=== PATIENT | female | born 1990 | race Two or more races ===

== ENCOUNTER 2020-02-07 21:20 | Emergency (ER) | payer BC, MEDICAID ==
[~2020-02-07] VITALS: Ht 149.9 cm; Wt 63.0 kg
[2020-02-07 22:15] VITALS: BP 106/80
[2020-02-07 22:42] LABS: CLARITY,URINE CLEAR (Clear); COLOR,URINE YELLOW (Yellow); GLUCOSE, URINE NEGATIVE (Neg); KETONES,URINE NEGATIVE (Neg); LEUKOCYTE ESTERASE ,URINE NEGATIVE (Neg); NITRITES, URINE NEGATIVE (Neg); OCCULT BLOOD,URINE NEGATIVE (Neg); PROTEIN,URINE NEGATIVE (Neg); UROBILINOGEN,URINE 0.2 E.U/dL (0.2-1.0)
[2020-02-07 22:46] LABS: UA COLLECTION TYPE NON-SPECIFIED
== END 2020-02-07 22:43 | disposition home or self-care (01) ==
LOC: ER 21:20
DX: K42.9 Umbilical hernia without obstruction or gangrene (principal); Z34.90 Encounter for supervision of normal pregnancy, unspecified, unspecified trimester
CPT/HCPCS: 76857; 81003; 99284

== ENCOUNTER 2020-02-18 10:48 | Outpatient (CLI) | payer BC ==
[2020-02-18 11:21] LABS: BASOPHILS # (AUTO) 0.1 X10'3 (0-0.2); BASOPHILS % (AUTO) 0.5 % (0-1); EOSINOPHILS # (AUTO) 0.1 X10'3 (0-0.9); EOSINOPHILS % (AUTO) 0.7 % (0-6); HEMATOCRIT 38.4 % (35.0-45.0); HEMOGLOBIN 13.1 g/dl (12.0-16.0); LYMPHOCYTES # (AUTO) 3.4 X10'3 (1.1-4.8); LYMPHOCYTES % (AUTO) 23.5 % (21-51); MEAN CORPUSCULAR HEMOGLOBIN 29.3 PG (27.0-31.0); MEAN CORPUSCULAR HGB CONC 34.1 g/dL (33.0-36.5); MEAN CORPUSCULAR VOLUME 85.9 FL (78-98); MEAN PLATELET VOLUME 8.3 FL (7.4-10.4); MONOCYTES # (AUTO) 0.9 X10'3 (0-0.9); MONOCYTES % (AUTO) 5.9 % (2-12); NEUTROPHILS % (AUTO) 69.4 % (42-75); PLATELET COUNT 325 X10'3 (140-440); RED BLOOD COUNT 4.47 X10'6 (4.20-5.60); RED CELL DISTRIBUTION WIDTH 13.4 % (11.5-14.5); WHITE BLOOD COUNT 14.4 X10'3 (4.5-11.0)
[2020-02-18 11:43] LABS: ALANINE AMINOTRANSFERASE 18 U/L (12-78); ALBUMIN 3.4 G/DL (3.4-5.0); ALBUMIN/GLOBULIN RATIO 0.9 (1.1-1.5); ALKALINE PHOSPHATASE 75 IU/L (46-116); ANION GAP 8 (8-16); ASPARTATE AMINO TRANSFERASE 18 U/L (10-37); BILIRUBIN,TOTAL 0.3 MG/DL (0.1-1.0); BLOOD UREA NITROGEN 8 MG/DL (7-18); CALCIUM 8.7 MG/DL (8.5-10.1); CHLORIDE 103 MMOL/L (99-107); CHOL/HDL RATIO 3.4 (0.00-4.99); CHOLESTEROL 225 MG/DL (0-200); CREATININE 0.47 MG/DL (0.40-0.90); GLUCOSE 82 MG/DL (70-104); HDL CHOLESTEROL 67 MG/DL (35-60); LDL CHOLESTEROL 130 MG/DL (50-100); POTASSIUM 3.9 MMOL/L (3.5-5.1); SODIUM 137 MMOL/L (135-145); TOTAL CARBON DIOXIDE 25.6 MMOL/L (24-32); TOTAL PROTEIN 7.3 G/DL (6.4-8.2); TRIGLYCERIDES 155 MG/DL (20-135); eGFR > 90 ML/MIN
[2020-02-18 11:57] LABS: HEMOGLOBIN A1C 5.5 % (4.5-6.2)
== END 2020-02-18 23:59 | disposition home or self-care (01) ==
LOC: LAB 10:48
PROVIDERS: ATTEND Physician Assistant
DX: Z00.00 Encounter for general adult medical examination without abnormal findings (principal); R10.9 Unspecified abdominal pain; R63.1 Polydipsia
CPT/HCPCS: 36415; 80053; 80061; 83036; 84439; 84443; 85025

== ENCOUNTER 2020-02-19 07:01 | Outpatient (CLI) | payer BC | END 2020-02-19 23:59 | disposition home or self-care (01) | LOC: RAD 07:01 | PROVIDERS: ATTEND Physician Assistant | DX: R10.9 Unspecified abdominal pain (principal) | CPT/HCPCS: 76700 ==

== ENCOUNTER 2020-02-28 09:21 | Outpatient (CLI) | payer OTHER | END 2020-02-28 23:59 | disposition home or self-care (01) | LOC: LAB 09:21 | PROVIDERS: ATTEND Internal Medicine Infectious Disease | DX: Z53.21 Procedure and treatment not carried out due to patient leaving prior to being seen by health care provider (principal) ==

== ENCOUNTER → 2020-03-02 | Outpatient (CLI) | payer OTHER | END | disposition home or self-care (01) | LOC: LAB 10:21 | PROVIDERS: ATTEND Internal Medicine Infectious Disease | DX: Z53.9 Procedure and treatment not carried out, unspecified reason (principal) ==

== ENCOUNTER 2020-03-05 09:36 | Emergency (ER) | payer BC, OTHER ==
[~2020-03-05] VITALS: Ht 149.9 cm; Wt 63.6 kg
[2020-03-05 09:38] VITALS: BP 122/72
[2020-03-05 10:36] LABS: BASOPHILS % (AUTO) 0.4 % (0-1); EOSINOPHILS # (AUTO) 0.1 X10'3 (0-0.9); EOSINOPHILS % (AUTO) 0.8 % (0-6); HEMATOCRIT 37.5 % (35.0-45.0); HEMOGLOBIN 12.8 g/dl (12.0-16.0); LYMPHOCYTES # (AUTO) 2.8 X10'3 (1.1-4.8); MEAN CORPUSCULAR HEMOGLOBIN 29.5 PG (27.0-31.0); MEAN CORPUSCULAR VOLUME 86.8 FL (78-98); MONOCYTES # (AUTO) 0.6 X10'3 (0-0.9); MONOCYTES % (AUTO) 5.1 % (2-12); NEUTROPHILS # (AUTO) 8.7 X10'3 (1.8-7.7); NEUTROPHILS % (AUTO) 70.7 % (42-75); PLATELET COUNT 314 X10'3 (140-440); RED BLOOD COUNT 4.32 X10'6 (4.20-5.60); RED CELL DISTRIBUTION WIDTH 13.6 % (11.5-14.5); WHITE BLOOD COUNT 12.3 X10'3 (4.5-11.0)
[2020-03-05 10:44] LABS: ALANINE AMINOTRANSFERASE 21 U/L (12-78); ALBUMIN 3.2 G/DL (3.4-5.0); ALBUMIN/GLOBULIN RATIO 0.8 (1.1-1.5); ALKALINE PHOSPHATASE 79 IU/L (46-116); ASPARTATE AMINO TRANSFERASE 10 U/L (10-37); BILIRUBIN,TOTAL 0.1 MG/DL (0.1-1.0); CALCIUM 8.6 MG/DL (8.5-10.1); TOTAL CARBON DIOXIDE 21.7 MMOL/L (24-32); TOTAL PROTEIN 7.2 G/DL (6.4-8.2)
[2020-03-05 10:47] LABS: ANION GAP 12 (8-16); BLOOD UREA NITROGEN 7 MG/DL (7-18); BUN/CREATININE RATIO 12.5 (6.6-38.0); CHLORIDE 103 MMOL/L (99-107); CREATININE 0.56 MG/DL (0.40-0.90); GLUCOSE 116 MG/DL (70-104); POTASSIUM 3.7 MMOL/L (3.5-5.1); SODIUM 137 MMOL/L (135-145); eGFR > 90 ML/MIN
[2020-03-05 11:31] LABS: CLARITY,URINE CLEAR (Clear); COLOR,URINE YELLOW (Yellow); GLUCOSE, URINE NEGATIVE (Neg); KETONES,URINE NEGATIVE (Neg); LEUKOCYTE ESTERASE ,URINE TRACE (Neg); NITRITES, URINE NEGATIVE (Neg); OCCULT BLOOD,URINE NEGATIVE (Neg); PH,URINE 6.5 (4.8-8.0); PROTEIN,URINE NEGATIVE (Neg); UROBILINOGEN,URINE 0.2 E.U/dL (0.2-1.0)
[2020-03-05 11:41] LABS: D-DIMER 0.31 MG/L FEU (0-0.50)
[2020-03-05 11:55] LABS: UA COLLECTION TYPE CLN CATCH MIDSTREAM
[2020-03-05 11:56] LABS: BACTERIA,URINE FEW /HPF (Neg); MUCUS STRANDS FEW /LPF (Neg); RBC,URINE 0-2 /HPF (0-2); SQUAMOUS EPITHELIAL CELL,UR MANY /LPF (FEW); WBC,URINE 0-4 /HPF (0-4)
== END 2020-03-05 12:38 | disposition home or self-care (01) ==
LOC: ER 09:37
DX: O26.811 Pregnancy related exhaustion and fatigue, first trimester (principal); O26.891 Other specified pregnancy related conditions, first trimester; R42 Dizziness and giddiness; Z3A.14 14 weeks gestation of pregnancy
CPT/HCPCS: 36415; 80053; 81001; 84443; 85025; 85379; 93005; 99284

== ENCOUNTER 2020-04-06 06:52 | Outpatient (CLI) | payer BC ==
[2020-04-06 09:46] LABS: BASOPHILS % (AUTO) 0.3 % (0-1); EOSINOPHILS # (AUTO) 0.1 X10'3 (0-0.9); EOSINOPHILS % (AUTO) 0.9 % (0-6); HEMATOCRIT 36.1 % (35.0-45.0); HEMOGLOBIN 12.2 g/dl (12.0-16.0); LYMPHOCYTES # (AUTO) 2.7 X10'3 (1.1-4.8); LYMPHOCYTES % (AUTO) 18.7 % (21-51); MEAN CORPUSCULAR HEMOGLOBIN 29.2 PG (27.0-31.0); MEAN CORPUSCULAR HGB CONC 33.7 g/dL (33.0-36.5); MEAN CORPUSCULAR VOLUME 86.8 FL (78-98); MEAN PLATELET VOLUME 8.9 FL (7.4-10.4); MONOCYTES # (AUTO) 1.2 X10'3 (0-0.9); MONOCYTES % (AUTO) 8.5 % (2-12); NEUTROPHILS # (AUTO) 10.3 X10'3 (1.8-7.7); NEUTROPHILS % (AUTO) 71.6 % (42-75); PLATELET COUNT 313 X10'3 (140-440); RED BLOOD COUNT 4.17 X10'6 (4.20-5.60); RED CELL DISTRIBUTION WIDTH 13.9 % (11.5-14.5); WHITE BLOOD COUNT 14.4 X10'3 (4.5-11.0)
[2020-04-06 13:01] LABS: HIV ANTIBODY 1&2 RAPID NON-REACTIVE (Neg)
[2020-04-07 14:33] LABS: HEPATITIS C ANTIBODY <0.1 s/co ratio (0.0-0.9); RUBELLA ANTIBODIES, IGG 1.58 index (Immune >0.99)
== END 2020-04-06 23:59 | disposition home or self-care (01) ==
LOC: LAB 06:52
PROVIDERS: ATTEND Specialist
DX: Z34.90 Encounter for supervision of normal pregnancy, unspecified, unspecified trimester (principal); R35.0 Frequency of micturition; Z3A.00 Weeks of gestation of pregnancy not specified
CPT/HCPCS: 36415; 85025; 86592; 86703; 86706; 86762; 86803; 86885; 86900; 86901; 87077; 87088; 87186

== ENCOUNTER 2020-04-15 17:51 | Outpatient (CLI) | payer BC | END 2020-04-15 23:59 | disposition home or self-care (01) | LOC: RAD 17:51 | PROVIDERS: ATTEND Physician Assistant | DX: O46.92 Antepartum hemorrhage, unspecified, second trimester (principal); Z3A.19 19 weeks gestation of pregnancy | CPT/HCPCS: 76805 ==

== ENCOUNTER 2020-06-10 09:06 | Outpatient (CLI) | payer BC ==
[2020-06-10 15:27] LABS: BASOPHILS # (AUTO) 0.1 X10'3 (0-0.2); BASOPHILS % (AUTO) 0.4 % (0-1); EOSINOPHILS # (AUTO) 0.2 X10'3 (0-0.9); EOSINOPHILS % (AUTO) 1.1 % (0-6); HEMATOCRIT 35.6 % (35.0-45.0); HEMOGLOBIN 11.7 g/dl (12.0-16.0); LYMPHOCYTES % (AUTO) 20.1 % (21-51); MEAN CORPUSCULAR HEMOGLOBIN 28.4 PG (27.0-31.0); MEAN CORPUSCULAR HGB CONC 32.8 g/dL (33.0-36.5); MEAN CORPUSCULAR VOLUME 86.8 FL (78-98); MEAN PLATELET VOLUME 8.6 FL (7.4-10.4); MONOCYTES % (AUTO) 6.7 % (2-12); NEUTROPHILS # (AUTO) 10.8 X10'3 (1.8-7.7); NEUTROPHILS % (AUTO) 71.7 % (42-75); PLATELET COUNT 323 X10'3 (140-440); RED BLOOD COUNT 4.11 X10'6 (4.20-5.60); RED CELL DISTRIBUTION WIDTH 13.4 % (11.5-14.5); WHITE BLOOD COUNT 15.1 X10'3 (4.5-11.0)
[2020-06-10 15:33] LABS: GLUCOSE PREG 50 GM SCREEN 111 MG/DL (70-140)
[2020-06-10 17:08] LABS: GLUCOSE 1 HOUR 128 MG/DL
== END 2020-06-10 23:59 | disposition home or self-care (01) ==
LOC: LAB 09:06
PROVIDERS: ATTEND Specialist
DX: O24.419 Gestational diabetes mellitus in pregnancy, unspecified control (principal); Z3A.00 Weeks of gestation of pregnancy not specified
CPT/HCPCS: 36415; 82950; 85025; 86592; 86885; 86900; 86901

== ENCOUNTER 2020-09-20 01:51 | Emergency (ER) | payer BC ==
[~2020-09-20] VITALS: Ht 149.9 cm; Wt 70.0 kg
[2020-09-20] MEDS ORDERED: acetaminophen 325mg tablet PO ONE (02:20)
[2020-09-20] MEDS ORDERED: ketorolac tromethamine 15mg/ml inj. IM ONE (02:20)
[2020-09-20] MEDS ORDERED: iohexol 350MG/ML 100ml bottle IV ONE (02:28)
[2020-09-20 02:55] LABS: BASOPHILS # (AUTO) 0.1 X10'3 (0-0.2); BASOPHILS % (AUTO) 0.6 % (0-1); EOSINOPHILS # (AUTO) 0.2 X10'3 (0-0.9); EOSINOPHILS % (AUTO) 1.9 % (0-6); HEMATOCRIT 36.9 % (35.0-45.0); HEMOGLOBIN 11.9 g/dl (12.0-16.0); LYMPHOCYTES % (AUTO) 25.5 % (21-51); MEAN CORPUSCULAR HGB CONC 32.4 g/dL (33.0-36.5); MEAN CORPUSCULAR VOLUME 83.3 FL (78-98); MEAN PLATELET VOLUME 9.2 FL (7.4-10.4); MONOCYTES # (AUTO) 0.9 X10'3 (0-0.9); MONOCYTES % (AUTO) 7.3 % (2-12); NEUTROPHILS # (AUTO) 7.6 X10'3 (1.8-7.7); NEUTROPHILS % (AUTO) 64.7 % (42-75); PLATELET COUNT 336 X10'3 (140-440); RED BLOOD COUNT 4.43 X10'6 (4.20-5.60); RED CELL DISTRIBUTION WIDTH 15.2 % (11.5-14.5); WHITE BLOOD COUNT 11.7 X10'3 (4.5-11.0)
[2020-09-20 02:58] LABS: ALANINE AMINOTRANSFERASE 28 U/L (12-78); ALBUMIN 2.9 G/DL (3.4-5.0); ALBUMIN/GLOBULIN RATIO 0.7 (1.1-1.5); ALKALINE PHOSPHATASE 182 IU/L (46-116); ANION GAP 9 (8-16); ASPARTATE AMINO TRANSFERASE 22 U/L (10-37); BILIRUBIN,TOTAL 0.2 MG/DL (0.1-1.0); BLOOD UREA NITROGEN 10 MG/DL (7-18); BUN/CREATININE RATIO 14.9 (6.6-38.0); CALCIUM 8.8 MG/DL (8.5-10.1); CHLORIDE 107 MMOL/L (99-107); CREATININE 0.67 MG/DL (0.40-0.90); GLUCOSE 93 MG/DL (70-104); SODIUM 141 MMOL/L (135-145); TOTAL CARBON DIOXIDE 25.1 MMOL/L (24-32); eGFR > 90 ML/MIN
[2020-09-20] MEDS ORDERED: LIDOcaine 1% 30ml preserv. free vial IJ STA (03:08)
[2020-09-20 03:55] LABS: CLARITY,URINE CLEAR (Clear); COLOR,URINE YELLOW (Yellow); GLUCOSE, URINE NEGATIVE (Neg); KETONES,URINE NEGATIVE (Neg); LEUKOCYTE ESTERASE ,URINE NEGATIVE (Neg); NITRITES, URINE NEGATIVE (Neg); OCCULT BLOOD,URINE MODERATE (Neg); PH,URINE 7.5 (4.8-8.0); PROTEIN,URINE NEGATIVE (Neg); UROBILINOGEN,URINE 0.2 E.U/dL (0.2-1.0)
[2020-09-20 04:00] LABS: UA COLLECTION TYPE CLN CATCH MIDSTREAM
[2020-09-20] MEDS ORDERED: magnesium 4gm in 100ml NS 100 ML IV ONE (04:00)
[2020-09-20] MEDS ORDERED: labetalol 20mg/4ml (5mg/ml) syringe IV ONE (04:00)
[2020-09-20 04:01] LABS: BACTERIA,URINE NONE SEEN /HPF (Neg); SQUAMOUS EPITHELIAL CELL,UR FEW /LPF (FEW); WBC,URINE NONE SEEN /HPF (0-4)
[2020-09-20 04:58] VITALS: BP 139/97
== END 2020-09-20 05:02 ==
LOC: EEVIPCON 01:51 → ER 01:51
DX: O14.95 Unspecified pre-eclampsia, complicating the puerperium (principal); M25.511 Pain in right shoulder; M54.2 Cervicalgia
CPT/HCPCS: 20552; 36415; 71275; 74174; 80053; 81001; 82570; 84156; 85025; 93005; 96365; 96375; 99285; J2001; J3475; Q9967; J3490

== ENCOUNTER 2021-01-02 08:21 | Outpatient (CLI) | payer BC ==
[2021-01-02 09:11] LABS: BASOPHILS # (AUTO) 0.1 X10'3 (0-0.2); BASOPHILS % (AUTO) 0.6 % (0-1); EOSINOPHILS # (AUTO) 0.2 X10'3 (0-0.9); HEMATOCRIT 38.9 % (35.0-45.0); HEMOGLOBIN 13.1 g/dl (12.0-16.0); LYMPHOCYTES # (AUTO) 3.1 X10'3 (1.1-4.8); MEAN CORPUSCULAR HEMOGLOBIN 27.8 PG (27.0-31.0); MEAN CORPUSCULAR HGB CONC 33.7 g/dL (33.0-36.5); MEAN CORPUSCULAR VOLUME 82.4 FL (78-98); MEAN PLATELET VOLUME 8.1 FL (7.4-10.4); MONOCYTES # (AUTO) 0.7 X10'3 (0-0.9); MONOCYTES % (AUTO) 6.9 % (2-12); NEUTROPHILS # (AUTO) 6.6 X10'3 (1.8-7.7); NEUTROPHILS % (AUTO) 61.5 % (42-75); PLATELET COUNT 340 X10'3 (140-440); RED BLOOD COUNT 4.72 X10'6 (4.20-5.60); RED CELL DISTRIBUTION WIDTH 15.7 % (11.5-14.5); WHITE BLOOD COUNT 10.7 X10'3 (4.5-11.0)
[2021-01-02 09:43] LABS: ALANINE AMINOTRANSFERASE 32 U/L (12-78); ALBUMIN 3.9 G/DL (3.4-5.0); ALKALINE PHOSPHATASE 136 IU/L (46-116); ANION GAP 14 (8-16); ASPARTATE AMINO TRANSFERASE 20 U/L (10-37); BILIRUBIN,TOTAL 0.4 MG/DL (0.1-1.0); BLOOD UREA NITROGEN 19 MG/DL (7-18); CALCIUM 8.5 MG/DL (8.5-10.1); CHLORIDE 108 MMOL/L (99-107); CHOL/HDL RATIO 3.2 (0.00-4.99); CHOLESTEROL 175 MG/DL (0-200); GLUCOSE 67 MG/DL (70-104); HDL CHOLESTEROL 55 MG/DL (35-60); LDL CHOLESTEROL 110 MG/DL (50-100); POTASSIUM 3.7 MMOL/L (3.5-5.1); SODIUM 145 MMOL/L (135-145); TOTAL CARBON DIOXIDE 22.6 MMOL/L (24-32); TOTAL PROTEIN 7.8 G/DL (6.4-8.2); TRIGLYCERIDES 44 MG/DL (20-135)
[2021-01-02 10:40] LABS: BUN/CREATININE RATIO 31.7 (6.6-38.0); eGFR > 90 ML/MIN
[2021-01-03 14:37] LABS: THIIODOTHRONINE, FREE, SERUM 2.6 pg/mL (2.0-4.4)
[2021-01-05 09:52] LABS: MICROALB/CRT, RATIO 12 mg/g creat (0-29)
== END 2021-01-02 23:59 | disposition home or self-care (01) ==
LOC: RAD 08:21
PROVIDERS: ATTEND Physician Assistant
DX: Z00.00 Encounter for general adult medical examination without abnormal findings (principal); K80.20 Calculus of gallbladder without cholecystitis without obstruction; O14.90 Unspecified pre-eclampsia, unspecified trimester; R19.4 Change in bowel habit; Z80.0 Family history of malignant neoplasm of digestive organs; Z83.79 Family history of other diseases of the digestive system
CPT/HCPCS: 36415; 76700; 80053; 80061; 82043; 82306; 82570; 84439; 84443; 84481; 85025

== ENCOUNTER 2021-01-04 00:44 | Emergency (ER) | payer BC ==
[~2021-01-04] VITALS: Ht 149.9 cm; Wt 59.1 kg
[2021-01-04 01:45] LABS: BASOPHILS # (AUTO) 0.1 X10'3 (0-0.2); BASOPHILS % (AUTO) 0.7 % (0-1); EOSINOPHILS # (AUTO) 0.3 X10'3 (0-0.9); EOSINOPHILS % (AUTO) 2.4 % (0-6); HEMATOCRIT 39.8 % (35.0-45.0); HEMOGLOBIN 13.3 g/dl (12.0-16.0); LYMPHOCYTES # (AUTO) 5.4 X10'3 (1.1-4.8); LYMPHOCYTES % (AUTO) 41.4 % (21-51); MEAN CORPUSCULAR HEMOGLOBIN 27.6 PG (27.0-31.0); MEAN CORPUSCULAR HGB CONC 33.4 g/dL (33.0-36.5); MEAN CORPUSCULAR VOLUME 82.5 FL (78-98); MEAN PLATELET VOLUME 8.2 FL (7.4-10.4); MONOCYTES # (AUTO) 1.1 X10'3 (0-0.9); NEUTROPHILS # (AUTO) 6.2 X10'3 (1.8-7.7); NEUTROPHILS % (AUTO) 47.5 % (42-75); PLATELET COUNT 360 X10'3 (140-440); RED BLOOD COUNT 4.82 X10'6 (4.20-5.60); RED CELL DISTRIBUTION WIDTH 15.3 % (11.5-14.5); WHITE BLOOD COUNT 13.1 X10'3 (4.5-11.0)
[2021-01-04] MEDS ORDERED: morphine 4 MG/ML inj SYRINge IV ONE (01:45)
[2021-01-04] MEDS ORDERED: ondansetron/PF 4mg/2ml inj IV ONE (01:45)
[2021-01-04 01:50] LABS: URINE HCG NEGATIVE (NEG)
[2021-01-04 01:54] LABS: COLOR,URINE YELLOW (Yellow); UA COLLECTION TYPE NON-SPECIFIED
[2021-01-04 01:55] LABS: CLARITY,URINE SLIGHTLY CLOUDY (Clear); GLUCOSE, URINE NEGATIVE (Neg); KETONES,URINE NEGATIVE (Neg); LEUKOCYTE ESTERASE ,URINE NEGATIVE (Neg); NITRITES, URINE NEGATIVE (Neg); OCCULT BLOOD,URINE NEGATIVE (Neg); PROTEIN,URINE TRACE mg/dl (Neg); UROBILINOGEN,URINE 0.2 E.U/dL (0.2-1.0)
[2021-01-04 01:57] LABS: BACTERIA,URINE 1+ /HPF (Neg); MUCUS STRANDS MODERATE /LPF (Neg)
[2021-01-04 01:58] LABS: RBC,URINE 0-2 /HPF (0-2); SQUAMOUS EPITHELIAL CELL,UR MODERATE /LPF (FEW)
[2021-01-04 02:02] LABS: ALANINE AMINOTRANSFERASE 32 U/L (12-78); ALBUMIN 3.6 G/DL (3.4-5.0); ALBUMIN/GLOBULIN RATIO 0.9 (1.1-1.5); ALKALINE PHOSPHATASE 152 IU/L (46-116); ANION GAP 9 (8-16); ASPARTATE AMINO TRANSFERASE 19 U/L (10-37); BILIRUBIN,TOTAL 0.2 MG/DL (0.1-1.0); BLOOD UREA NITROGEN 14 MG/DL (7-18); BUN/CREATININE RATIO 19.4 (6.6-38.0); CALCIUM 8.6 MG/DL (8.5-10.1); CHLORIDE 109 MMOL/L (99-107); CREATININE 0.72 MG/DL (0.40-0.90); GLUCOSE 99 MG/DL (70-104); LIPASE 130 U/L (73-393); POTASSIUM 3.7 MMOL/L (3.5-5.1); SODIUM 144 MMOL/L (135-145); TOTAL CARBON DIOXIDE 26.2 MMOL/L (24-32); TOTAL PROTEIN 7.6 G/DL (6.4-8.2); eGFR > 90 ML/MIN
--- NOTE | 2021-01-04 02:04 | NUR ---
Patient with Tech.
[2021-01-04 02:12] LABS: BILIRUBIN,DIRECT 0.1 MG/DL (0-0.3)
[2021-01-04 03:00] VITALS: BP 113/76
[2021-01-04] MEDS ORDERED: IBUP-1984 PO (03:30)
[2021-01-04] MEDS ORDERED: NO HOME MEDS (22:22)
== END 2021-01-04 02:15 | disposition home or self-care (01) ==
LOC: ER 00:44
DX: K80.20 Calculus of gallbladder without cholecystitis without obstruction (principal); R10.11 Right upper quadrant pain; Z79.899 Other long term (current) drug therapy
CPT/HCPCS: 36415; 76700; 80053; 81001; 81025; 82248; 83690; 85025; 87088; 96374; 96375; 99284; J2270; J2405

== ENCOUNTER 2021-01-04 17:57 | Inpatient (IN) | payer BC ==
[~2021-01-04] VITALS: Ht 149.9 cm; Wt 61.0 kg
[~2021-01-04 17:57] MED LIST: IBUP-1984 PO
[2021-01-04] MEDS ORDERED: ketorolac trometh. 30mg/ml inj. IV ONE (18:20)
[2021-01-04] MEDS ORDERED: morphine 4 MG/ML inj SYRINge IV PRN (18:20)
[2021-01-04] MEDS ORDERED: ondansetron/PF 4mg/2ml inj IV ONE (18:20)
[2021-01-04] MEDS ORDERED: normal saline 1000ML IV soln IVB ONE (18:20)
[2021-01-04 18:41] LABS: BASOPHILS % (AUTO) 0.3 % (0-1); EOSINOPHILS # (AUTO) 0.2 X10'3 (0-0.9); EOSINOPHILS % (AUTO) 1.2 % (0-6); HEMATOCRIT 40.6 % (35.0-45.0); HEMOGLOBIN 13.4 g/dl (12.0-16.0); LYMPHOCYTES # (AUTO) 3.9 X10'3 (1.1-4.8); LYMPHOCYTES % (AUTO) 24.7 % (21-51); MEAN CORPUSCULAR HEMOGLOBIN 27.4 PG (27.0-31.0); MEAN CORPUSCULAR HGB CONC 33.1 g/dL (33.0-36.5); MEAN CORPUSCULAR VOLUME 82.8 FL (78-98); MEAN PLATELET VOLUME 8.2 FL (7.4-10.4); MONOCYTES # (AUTO) 1.4 X10'3 (0-0.9); MONOCYTES % (AUTO) 8.9 % (2-12); NEUTROPHILS # (AUTO) 10.2 X10'3 (1.8-7.7); NEUTROPHILS % (AUTO) 64.9 % (42-75); PLATELET COUNT 381 X10'3 (140-440); RED CELL DISTRIBUTION WIDTH 15.9 % (11.5-14.5); WHITE BLOOD COUNT 15.7 X10'3 (4.5-11.0)
[2021-01-04] MEDS ORDERED: CefTRIAXone 2gm/D5W 50ml BAG 50 ML IV ONE (18:55)
[2021-01-04 18:58] LABS: ALANINE AMINOTRANSFERASE 73 U/L (12-78); ALKALINE PHOSPHATASE 195 IU/L (46-116); ANION GAP 10 (8-16); ASPARTATE AMINO TRANSFERASE 90 U/L (10-37); BILIRUBIN,TOTAL 0.7 MG/DL (0.1-1.0); BLOOD UREA NITROGEN 12 MG/DL (7-18); BUN/CREATININE RATIO 16.4 (6.6-38.0); CALCIUM 8.6 MG/DL (8.5-10.1); CHLORIDE 106 MMOL/L (99-107); CREATININE 0.73 MG/DL (0.40-0.90); GLUCOSE 89 MG/DL (70-104); LIPASE 169 U/L (73-393); POTASSIUM 3.8 MMOL/L (3.5-5.1); SODIUM 143 MMOL/L (135-145); TOTAL CARBON DIOXIDE 27.4 MMOL/L (24-32); TOTAL PROTEIN 7.9 G/DL (6.4-8.2); eGFR > 90 ML/MIN
[2021-01-04] MEDS ORDERED: LORazepam 2 mg/ml vial IV ONE ×2 (21:20→21:30)
[2021-01-04] MEDS ORDERED: morphine 2 MG/ML inj. syringe IV PRN (21:40)
[2021-01-04] MEDS ORDERED: NO HOME MEDS (22:22)
[2021-01-04] MEDS: normal saline 1000ml 1,000 ML IV SCH (23:27)
[2021-01-05] VITALS (15 sets, daily range): BP systolic 98–148; BP diastolic 57–100
[2021-01-05 01:27] LABS: BASOPHILS # (AUTO) 0.1 X10'3 (0-0.2); BASOPHILS % (AUTO) 0.6 % (0-1); EOSINOPHILS # (AUTO) 0.1 X10'3 (0-0.9); EOSINOPHILS % (AUTO) 1.1 % (0-6); HEMATOCRIT 35.9 % (35.0-45.0); LYMPHOCYTES # (AUTO) 3.2 X10'3 (1.1-4.8); LYMPHOCYTES % (AUTO) 34.4 % (21-51); MEAN CORPUSCULAR HGB CONC 33.5 g/dL (33.0-36.5); MEAN CORPUSCULAR VOLUME 83.5 FL (78-98); MEAN PLATELET VOLUME 8.6 FL (7.4-10.4); MONOCYTES # (AUTO) 0.8 X10'3 (0-0.9); MONOCYTES % (AUTO) 8.1 % (2-12); NEUTROPHILS # (AUTO) 5.2 X10'3 (1.8-7.7); NEUTROPHILS % (AUTO) 55.8 % (42-75); PLATELET COUNT 295 X10'3 (140-440); RED BLOOD COUNT 4.29 X10'6 (4.20-5.60); RED CELL DISTRIBUTION WIDTH 15.4 % (11.5-14.5); WHITE BLOOD COUNT 9.3 X10'3 (4.5-11.0)
[2021-01-05 01:45] LABS: ALANINE AMINOTRANSFERASE 364 U/L (12-78); ALBUMIN 3.1 G/DL (3.4-5.0); ALBUMIN/GLOBULIN RATIO 0.9 (1.1-1.5); ALKALINE PHOSPHATASE 207 IU/L (46-116); ANION GAP 10 (8-16); ASPARTATE AMINO TRANSFERASE 453 U/L (10-37); BLOOD UREA NITROGEN 14 MG/DL (7-18); BUN/CREATININE RATIO 24.6 (6.6-38.0); CALCIUM 8.1 MG/DL (8.5-10.1); CHLORIDE 109 MMOL/L (99-107); CREATININE 0.57 MG/DL (0.40-0.90); GLUCOSE 91 MG/DL (70-104); POTASSIUM 3.8 MMOL/L (3.5-5.1); SODIUM 142 MMOL/L (135-145); TOTAL CARBON DIOXIDE 23.2 MMOL/L (24-32); TOTAL PROTEIN 6.5 G/DL (6.4-8.2); eGFR > 90 ML/MIN
[2021-01-05] MEDS: ondansetron/PF 4mg/2ml inj IV PRN ×2 (04:40→20:48)
--- NOTE | 2021-01-05 06:15 | NUR ---
Received pt in bed AAOx4, elevated blood pressure obtained and reported to in coming RN to follow up. Pt reported some pain but feels lesser than before
--- NOTE | 2021-01-05 06:25 | NUR ---
Patient in room [facility]. I have received report from CRISTY Keene and had the opportunity to ask questions and assume patient care.
--- NOTE | 2021-01-05 06:32 | NUR ---
Phoned Dr Hawthorne re BP 140/100 not concerned and denies need to treat.
[2021-01-05] MEDS: normal saline 1000ml 1,000 ML IV SCH ×2 (07:40→15:21)
[2021-01-05] MEDS: CefTRIAXone/D5W-Rocephin 1gm 50 ML IV SCH (07:47)
[2021-01-05] MEDS ORDERED: ketorolac tromethamine 15mg/ml inj. IV PRN (09:10)
[2021-01-05] MEDS ORDERED: hydrALAZINE 20mg/ml inj. IV PRN (13:20)
[2021-01-05] MEDS ORDERED: ringers solution, lacted 1,000 ML IV SCH (13:20)
[2021-01-05] MEDS ORDERED: labetalol 20mg/4ml (5mg/ml) syringe IV PRN (13:20)
[2021-01-05] MEDS ORDERED: morphine 4 MG/ML inj SYRINge IV PRN (13:20)
[2021-01-05] MEDS ORDERED: ondansetron/PF 4mg/2ml inj IV PRN (13:20)
[2021-01-05] MEDS ORDERED: morphine 2 MG/ML inj. syringe IV PRN (13:20)
[2021-01-05] MEDS ORDERED: fentaNYL/PF 50MCG/1 ML 2ML syringe IV PRN ×2 (13:20)
[2021-01-05] MEDS ORDERED: INDOCYANINE GREEN 25 MG/10 ML VIAL IV ONE (14:55)
--- NOTE | 2021-01-05 16:22 | NUR ---
Received a call from Maria G in infection control. Pt was discovered to have 2 negative covid tests after having covid in November but now testing positive. Original thought was Pt was still testing + from previous infection but in light of [address] Subramanian decided to place her back into Isolation until more research can be don. Pt is returning from pre-op area and will be placed last in rotation later this evening.
--- NOTE | 2021-01-05 17:55 | NUR ---
Pt returned to recovery preop. BG 58 Called to Tony for coverage.
--- NOTE | 2021-01-05 18:37 | NUR ---
Patient in room [facility]. I have received report from SAUNDRA Montes and had the opportunity to ask questions and assume patient care.
[2021-01-05] MEDS ORDERED: BUPIVAcaine 0.5% inj/PF 30 ML ONE (18:59)
[2021-01-05] MEDS ORDERED: LIDOcaine 1% 30ml preserv. free vial ONE (18:59)
--- NOTE | 2021-01-05 18:59 | NUR ---
Problems reprioritized. Patient report given, questions answered & plan of care reviewed with SAUNDRA Warren.
[2021-01-05] MEDS ORDERED: propofol inj 20 ML IV ONE (19:27)
[2021-01-05] MEDS ORDERED: fentaNYL/PF 50MCG/1 ML 2ML syringe ONE (19:27)
[2021-01-05] MEDS ORDERED: rocuronium 10mg/ml inj IV ONE (19:27)
[2021-01-05] MEDS ORDERED: LIDOcaine 2% (20mg/ml) 5ml vial ONE (19:27)
[2021-01-05] MEDS ORDERED: midazolam 1 mg/ML 2ml injection ONE (19:27)
[2021-01-05] MEDS ORDERED: ondansetron/PF 4mg/2ml inj ONE (19:28)
[2021-01-05] MEDS ORDERED: glycopyrrolate 0.2mg/ml inj ONE (19:39)
[2021-01-05] MEDS ORDERED: HYDROcodone/acetaminophen 5mg/325mg tablet PO PRN (20:35)
--- NOTE | 2021-01-05 20:35 | NUR ---
Received from OR via BED, accompanied by Anesthesiologist ZENON and report given by Anesthesiolgist. PT. AWAKE. O2 6 L VIA MASK. PALPABLE PULSES MAOVES ALL EXTREMITIES. IV 20 G R. AC CDI. LR INFUSING AT 100 ML/HR. 4 LARGE BANDAIDS ON LOWER ABD. CDI. VSS. Addendum: 01/05/21 at 2106 by Adelia Dominguez RN Amended: Links added.
[2021-01-05] MEDS: morphine 2 MG/ML inj. syringe IV PRN (21:18)
--- NOTE | 2021-01-05 21:24 | NUR ---
Patient in room [facility]. I have received report from SAUNDRA Delvalle and had the opportunity to ask questions and assume patient care.
--- NOTE | 2021-01-05 21:25 | NUR ---
REPORT CALLED TO YASMIN ON SURGICAL. VSS. PT. ALERT AND AWAKE PAIN 10. 2 MG MORPHINE GIVEN PRIOR TO TRANSPORT. ALL DC CRITERIA MET. NO NAUSEA NOTED. PT. ATE 1 C. OF ICE CHIPS. O2 AT 2L NC FOR TIMES OF RESTING. SATS GOOD ON RA. BANDAIDS CDI. IV IN R. AC INFUSING 100 ML LR. SCDS ON. ALL QUESTIONS ANSWERED. BED LOW, SIDE RAILS X 2, CALL LIGHT IN REACH. Addendum: 01/05/21 at 2137 by Adelia Dominguez RN Amended: Links added.
--- NOTE | 2021-01-05 21:43 | NUR ---
Patient arrived to floor, vss, c/o pain 09/10. Patient up to restroom with 1PA.
[2021-01-05] MEDS: HYDROcodone/acetaminophen 10/325mg tab PO PRN (21:46)
[2021-01-06] VITALS: BP 109/71
[2021-01-06 00:15] VITALS: BP 94/55
[2021-01-06 01:15] VITALS: BP 105/54
[2021-01-06] MEDS: morphine 2 MG/ML inj. syringe IV PRN (01:25)
[2021-01-06] MEDS: normal saline 1000ml 1,000 ML IV SCH (05:40)
--- NOTE | 2021-01-06 06:11 | NUR ---
Problems reprioritized. Patient report given, questions answered & plan of care reviewed with SAUNDRA Fan.
[2021-01-06 06:18] LABS: BASOPHILS % (AUTO) 0.2 % (0-1); EOSINOPHILS % (AUTO) 0 % (0-6); HEMOGLOBIN 12.3 g/dl (12.0-16.0); LYMPHOCYTES # (AUTO) 1.3 X10'3 (1.1-4.8); MEAN CORPUSCULAR HEMOGLOBIN 27.6 PG (27.0-31.0); MEAN CORPUSCULAR HGB CONC 33.2 g/dL (33.0-36.5); MEAN CORPUSCULAR VOLUME 83.1 FL (78-98); MEAN PLATELET VOLUME 8.5 FL (7.4-10.4); MONOCYTES # (AUTO) 0.1 X10'3 (0-0.9); MONOCYTES % (AUTO) 1.2 % (2-12); NEUTROPHILS # (AUTO) 10.7 X10'3 (1.8-7.7); NEUTROPHILS % (AUTO) 87.6 % (42-75); PLATELET COUNT 337 X10'3 (140-440); RED BLOOD COUNT 4.46 X10'6 (4.20-5.60); RED CELL DISTRIBUTION WIDTH 15.4 % (11.5-14.5); WHITE BLOOD COUNT 12.2 X10'3 (4.5-11.0)
--- NOTE | 2021-01-06 06:30 | NUR ---
Problems reprioritized. Patient report given, questions answered & plan of care reviewed with SAUNDRA Mckeon.
[2021-01-06 06:32] LABS: ALANINE AMINOTRANSFERASE 572 U/L (12-78); ALBUMIN 3.4 G/DL (3.4-5.0); ALBUMIN/GLOBULIN RATIO 0.8 (1.1-1.5); ALKALINE PHOSPHATASE 287 IU/L (46-116); ANION GAP 16 (8-16); ASPARTATE AMINO TRANSFERASE 228 U/L (10-37); BILIRUBIN,TOTAL 0.7 MG/DL (0.1-1.0); BLOOD UREA NITROGEN 12 MG/DL (7-18); BUN/CREATININE RATIO 17.4 (6.6-38.0); CALCIUM 8.6 MG/DL (8.5-10.1); CHLORIDE 105 MMOL/L (99-107); CREATININE 0.69 MG/DL (0.40-0.90); GLUCOSE 134 MG/DL (70-104); POTASSIUM 4.3 MMOL/L (3.5-5.1); SODIUM 139 MMOL/L (135-145); TOTAL CARBON DIOXIDE 18.1 MMOL/L (24-32); TOTAL PROTEIN 7.7 G/DL (6.4-8.2); eGFR > 90 ML/MIN
--- NOTE | 2021-01-06 06:35 | NUR ---
Patient in room [facility]. I have received report from Briana ARGUELLO and had the opportunity to ask questions and assume patient care.
[2021-01-06 07:00] VITALS: BP_SYST 117; BP_SYST 127; BP_DIAS 65; BP_DIAS 76
[2021-01-06] MEDS: CefTRIAXone/D5W-Rocephin 1gm 50 ML IV SCH (08:30)
[2021-01-06] MEDS: HYDROcodone/acetaminophen 10/325mg tab PO PRN (08:31)
[2021-01-06] MEDS ORDERED: HYDR-3965 PO (12:01)
--- NOTE | 2021-01-06 14:50 | NUR ---
Pt DC to home, pt is A & O x4 and in no apparent distress. Pt verbalizes understanding of ALL DC orders. Pt knows limitations and S&S of infection. pt's IV cath was removed intact. Pt got dressed and packed her belongings, pt wheeled to the front where her pick her up.
[2021-01-06] MEDS ORDERED: lactobacillus rhamnosus 10,000 MMU CELLS/CAPSULE PO SCH (20:00)
[2021-01-07] MEDS ORDERED: HYDR-3964 PO (16:35)
[2021-01-07] MEDS ORDERED: NORE0.3520 PO (16:35)
== END 2021-01-06 14:49 | disposition home or self-care (01) | DRG 419 ==
LOC: ER 17:58 → EEVIPCON 17:58 → ED HOLD 21:44 → SUR 3N 01-05 05:15
PROVIDERS: ADMIT Internal Medicine; ATTEND Family Medicine
PROC: 8E0W4CZ Robotic Assisted Procedure of Trunk Region, Percutaneous Endoscopic Approach (ICD-10-PCS; 2021-01-05)
PROC: BF532Z0 Other Imaging of Gallbladder and Bile Ducts using Fluorescing Agent, Intraoperative (ICD-10-PCS; 2021-01-05)
PROC: 0FT44ZZ Resection of Gallbladder, Percutaneous Endoscopic Approach (ICD-10-PCS; principal; 2021-01-05 19:25)
DX: K80.00 Calculus of gallbladder with acute cholecystitis without obstruction (principal); R74.01 Elevation of levels of liver transaminase levels; Z86.16 Personal history of COVID-19; Z79.899 Other long term (current) drug therapy
CPT/HCPCS: 96374; 99285; Z7506; Z7508; 36415; 80053; 82948; 83690; 85025; 87081; 87635; A4215; A4618; A7000; G0378; J0696; J1885; J2001; J2060; J2250; J2270; J2405; J2704; J3010; J3490; J7030; J7120

== ENCOUNTER 2021-01-07 13:25 | Inpatient (IN) | payer BC ==
[~2021-01-07] VITALS: Ht 149.9 cm; Wt 59.1 kg
[~2021-01-07 13:25] MED LIST changes: +HYDR-3965 PO; -IBUP-1984 PO
[2021-01-07] MEDS ORDERED: ketorolac tromethamine 15mg/ml inj. IV ONE (13:45)
[2021-01-07] MEDS ORDERED: proCHLORperazine 10 MG/2 ml inj IV ONE (13:45)
[2021-01-07] MEDS ORDERED: normal saline 1000ML IV soln IVB ONE (13:45)
[2021-01-07] MEDS ORDERED: morphine 4 MG/ML inj SYRINge IV ONE (13:45)
[2021-01-07 14:13] LABS: BASOPHILS # (AUTO) 0.1 X10'3 (0-0.2); BASOPHILS % (AUTO) 0.5 % (0-1); EOSINOPHILS % (AUTO) 0.4 % (0-6); HEMATOCRIT 37.1 % (35.0-45.0); HEMOGLOBIN 12.7 g/dl (12.0-16.0); LYMPHOCYTES # (AUTO) 1.7 X10'3 (1.1-4.8); LYMPHOCYTES % (AUTO) 17.1 % (21-51); MEAN CORPUSCULAR HEMOGLOBIN 28.3 PG (27.0-31.0); MEAN CORPUSCULAR HGB CONC 34.1 g/dL (33.0-36.5); MEAN CORPUSCULAR VOLUME 82.8 FL (78-98); MEAN PLATELET VOLUME 8.4 FL (7.4-10.4); MONOCYTES # (AUTO) 0.8 X10'3 (0-0.9); MONOCYTES % (AUTO) 7.8 % (2-12); NEUTROPHILS # (AUTO) 7.6 X10'3 (1.8-7.7); NEUTROPHILS % (AUTO) 74.2 % (42-75); PLATELET COUNT 344 X10'3 (140-440); RED BLOOD COUNT 4.48 X10'6 (4.20-5.60); RED CELL DISTRIBUTION WIDTH 15.5 % (11.5-14.5); WHITE BLOOD COUNT 10.2 X10'3 (4.5-11.0)
[2021-01-07 14:38] LABS: ALANINE AMINOTRANSFERASE 1148 U/L (12-78); ALBUMIN 3.7 G/DL (3.4-5.0); ALKALINE PHOSPHATASE 427 IU/L (46-116); ANION GAP 9 (8-16); ASPARTATE AMINO TRANSFERASE 813 U/L (10-37); BILIRUBIN,TOTAL 1.9 MG/DL (0.1-1.0); BLOOD UREA NITROGEN 10 MG/DL (7-18); BUN/CREATININE RATIO 15.9 (6.6-38.0); CALCIUM 8.7 MG/DL (8.5-10.1); CHLORIDE 106 MMOL/L (99-107); CREATININE 0.63 MG/DL (0.40-0.90); GLUCOSE 129 MG/DL (70-104); POTASSIUM 3.5 MMOL/L (3.5-5.1); SODIUM 142 MMOL/L (135-145); TOTAL CARBON DIOXIDE 27.3 MMOL/L (24-32); TOTAL PROTEIN 7.3 G/DL (6.4-8.2); eGFR > 90 ML/MIN
[2021-01-07 16:20] LABS: LIPASE 334 U/L (73-393)
[2021-01-07] MEDS ORDERED: HYDR-3964 PO (16:35)
[2021-01-07] MEDS ORDERED: NORE0.3520 PO (16:35)
[2021-01-07] MEDS ORDERED: magnesium 2GM in 50ml NS 50 ML IV PRN (16:45)
[2021-01-07] MEDS ORDERED: oxyCODONE IR 5mg (immed. release) tablet PO PRN (16:45)
[2021-01-07] MEDS ORDERED: magnesium 4gm in 100ml NS 100 ML IV PRN (16:45)
[2021-01-07] MEDS ORDERED: magnesium Cl slow-release 64mg tablet PO PRN (16:45)
[2021-01-07] MEDS ORDERED: acetaminophen 325mg tablet PO PRN (16:45)
[2021-01-07] MEDS ORDERED: potassium Cl 40MEQ/1/2NS 520ml 520 ML IV PRN ×2 (16:45)
[2021-01-07] MEDS ORDERED: magnesium hydroxide 30ml (MOM) UD suspension PO PRN (16:45)
[2021-01-07] MEDS ORDERED: mag hydrox/Alum hydrox/simeth 30ml oral suspension PO PRN (16:45)
[2021-01-07] MEDS ORDERED: potassium Cl 20 mEq SR tablet PO PRN ×2 (16:45)
[2021-01-07 16:47] LABS: CLARITY,URINE CLOUDY (Clear); COLOR,URINE YELLOW (Yellow); GLUCOSE, URINE NEGATIVE (Neg); KETONES,URINE 80 mg/dl (Neg); NITRITES, URINE NEGATIVE (Neg); OCCULT BLOOD,URINE TRACE-INTACT (Neg); PROTEIN,URINE NEGATIVE (Neg); UA COLLECTION TYPE NON-SPECIFIED
[2021-01-07 16:48] LABS: LEUKOCYTE ESTERASE ,URINE NEGATIVE (Neg); UROBILINOGEN,URINE 0.2 E.U/dL (0.2-1.0)
[2021-01-07 16:57] LABS: MUCUS STRANDS FEW /LPF (Neg); SQUAMOUS EPITHELIAL CELL,UR MANY /LPF (FEW)
[2021-01-07 16:58] LABS: BACTERIA,URINE 1+ /HPF (Neg); RBC,URINE 0-2 /HPF (0-2); WBC,URINE 0-4 /HPF (0-4)
[2021-01-07] MEDS: normal saline 1000ml 1,000 ML IV SCH ×2 (17:34→20:02)
[2021-01-07] MEDS: K and/or MAG REPLACEMENT MC SCH (20:00)
[2021-01-07] MEDS: HYDROmorphone inj. 0.5 MG/0.5 ML DISP.SYRIN IV PRN ×2 (20:01→23:55)
[2021-01-07] MEDS: docusate sod 100mg capsule PO SCH (20:44)
[2021-01-07] MEDS ORDERED: temazepam 15mg capsule PO PRN (21:00)
[2021-01-07] MEDS: ondansetron/PF 4mg/2ml inj IV PRN (23:54)
[2021-01-08] VITALS: BP 134/96
[2021-01-08] MEDS: normal saline 1000ml 1,000 ML IV SCH (04:36)
[2021-01-08 05:53] LABS: PARTIAL THROMBOPLASTIN TIME 25 SECONDS (22-32)
[2021-01-08 06:03] LABS: BASOPHILS # (AUTO) 0.1 X10'3 (0-0.2); BASOPHILS % (AUTO) 0.8 % (0-1); EOSINOPHILS # (AUTO) 0.1 X10'3 (0-0.9); EOSINOPHILS % (AUTO) 1.7 % (0-6); HEMATOCRIT 35.1 % (35.0-45.0); HEMOGLOBIN 11.7 g/dl (12.0-16.0); LYMPHOCYTES # (AUTO) 3.1 X10'3 (1.1-4.8); MEAN CORPUSCULAR HGB CONC 33.3 g/dL (33.0-36.5); MEAN PLATELET VOLUME 8.8 FL (7.4-10.4); MONOCYTES # (AUTO) 0.7 X10'3 (0-0.9); MONOCYTES % (AUTO) 8.5 % (2-12); NEUTROPHILS # (AUTO) 4.3 X10'3 (1.8-7.7); PLATELET COUNT 296 X10'3 (140-440); RED BLOOD COUNT 4.18 X10'6 (4.20-5.60); RED CELL DISTRIBUTION WIDTH 15.9 % (11.5-14.5); WHITE BLOOD COUNT 8.3 X10'3 (4.5-11.0)
[2021-01-08 06:16] LABS: ALANINE AMINOTRANSFERASE 961 U/L (12-78); ALBUMIN 3.1 G/DL (3.4-5.0); ALBUMIN/GLOBULIN RATIO 0.9 (1.1-1.5); ALKALINE PHOSPHATASE 384 IU/L (46-116); ANION GAP 9 (8-16); ASPARTATE AMINO TRANSFERASE 417 U/L (10-37); BILIRUBIN,TOTAL 0.6 MG/DL (0.1-1.0); BLOOD UREA NITROGEN 6 MG/DL (7-18); BUN/CREATININE RATIO 12.5 (6.6-38.0); CALCIUM 8.2 MG/DL (8.5-10.1); CHLORIDE 106 MMOL/L (99-107); CREATININE 0.48 MG/DL (0.40-0.90); GLUCOSE 83 MG/DL (70-104); LIPASE 483 U/L (73-393); MAGNESIUM 1.8 MG/DL (1.5-2.4); POTASSIUM 3.5 MMOL/L (3.5-5.1); SODIUM 142 MMOL/L (135-145); TOTAL CARBON DIOXIDE 27.1 MMOL/L (24-32); TOTAL PROTEIN 6.4 G/DL (6.4-8.2); eGFR > 90 ML/MIN
[2021-01-08 07:06] VITALS: BP 144/101
[2021-01-08] MEDS: K and/or MAG REPLACEMENT MC SCH (08:00)
[2021-01-08] MEDS: docusate sod 100mg capsule PO SCH (08:05)
[2021-01-08] MEDS: ondansetron/PF 4mg/2ml inj IV PRN (09:23)
[2021-01-08] MEDS: HYDROmorphone inj. 0.5 MG/0.5 ML DISP.SYRIN IV PRN ×2 (09:32→13:28)
[2021-01-08] MEDS ORDERED: LORazepam 2 mg/ml vial IV ONE (10:15)
--- NOTE | 2021-01-08 10:48 | NUR ---
Patient down to MRCP.
--- NOTE | 2021-01-08 11:37 | NUR ---
Patient back to room.
[2021-01-08 14:00] VITALS: BP 145/94
--- NOTE | 2021-01-08 17:10 | NUR ---
Paged Dr. [facility] RN ext [phone]. RE: Bakari Cooney. Patient asking if she can go home tonight. She ate low fat diet at lunch time, no pain or nausea per patient.
--- NOTE | 2021-01-08 17:23 | NUR ---
Dr. Washington seen this patient. Per Dr. Washington patient does not need the pain medicine prescription as patient already have some at home when she was discharged recently. Patient confirmed to me that she already have some [place] at home so she does not need one.
--- NOTE | 2021-01-08 18:45 | NUR ---
Patient alert and oriented in no apparent distress. Discussed with patient all discharge instructions and patient verbalizes understanding of teaching. Discussed with patient constipation. Patient does report constipation but states it's normal for her and states "I've had issues." Patient refuses to have laxative. Patient discharged with all personal belongings.
== END 2021-01-08 18:30 | disposition home or self-care (01) | DRG 446 ==
LOC: EEVIPCON 13:26 → ER 13:26 → ED HOLD 16:47 → EDBEDREQ 18:17 → SUR 3N 19:41
PROVIDERS: ADMIT Family Medicine; ATTEND Family Medicine
DX: K80.51 Calculus of bile duct without cholangitis or cholecystitis with obstruction (principal); R74.8 Abnormal levels of other serum enzymes; R74.01 Elevation of levels of liver transaminase levels; Z90.49 Acquired absence of other specified parts of digestive tract
CPT/HCPCS: 36415; 74181; 76700; 80053; 81001; 83690; 83735; 85025; 85610; 85730; 87081; 96361; 96374; 96375; 99285; G0378; J0780; J1170; J1885; J2060; J2270; J2405; J7030

== ENCOUNTER 2021-01-09 10:11 | Outpatient (CLI) | payer BC ==
[~2021-01-09 10:11] MED LIST changes: +HYDR-3964 PO; -HYDR-3965 PO; +NORE0.3520 PO
[2021-01-09 10:48] LABS: BASOPHILS # (AUTO) 0.1 X10'3 (0-0.2); BASOPHILS % (AUTO) 0.7 % (0-1); EOSINOPHILS # (AUTO) 0.2 X10'3 (0-0.9); HEMATOCRIT 39.2 % (35.0-45.0); HEMOGLOBIN 13.1 g/dl (12.0-16.0); LYMPHOCYTES # (AUTO) 2.4 X10'3 (1.1-4.8); LYMPHOCYTES % (AUTO) 21.6 % (21-51); MEAN CORPUSCULAR HEMOGLOBIN 27.9 PG (27.0-31.0); MEAN CORPUSCULAR HGB CONC 33.3 g/dL (33.0-36.5); MEAN CORPUSCULAR VOLUME 83.9 FL (78-98); MEAN PLATELET VOLUME 8.5 FL (7.4-10.4); MONOCYTES # (AUTO) 0.8 X10'3 (0-0.9); MONOCYTES % (AUTO) 6.9 % (2-12); NEUTROPHILS # (AUTO) 7.6 X10'3 (1.8-7.7); NEUTROPHILS % (AUTO) 68.8 % (42-75); PLATELET COUNT 353 X10'3 (140-440); RED BLOOD COUNT 4.68 X10'6 (4.20-5.60); RED CELL DISTRIBUTION WIDTH 15.7 % (11.5-14.5); WHITE BLOOD COUNT 11.1 X10'3 (4.5-11.0)
[2021-01-09 11:13] LABS: ALANINE AMINOTRANSFERASE 946 U/L (12-78); ALBUMIN 3.7 G/DL (3.4-5.0); ALBUMIN/GLOBULIN RATIO 0.9 (1.1-1.5); ALKALINE PHOSPHATASE 583 IU/L (46-116); ANION GAP 11 (8-16); ASPARTATE AMINO TRANSFERASE 344 U/L (10-37); BILIRUBIN,TOTAL 1.3 MG/DL (0.1-1.0); BLOOD UREA NITROGEN 10 MG/DL (7-18); BUN/CREATININE RATIO 17.5 (6.6-38.0); CALCIUM 9.2 MG/DL (8.5-10.1); CHLORIDE 104 MMOL/L (99-107); CREATININE 0.57 MG/DL (0.40-0.90); GLUCOSE 93 MG/DL (70-104); LIPASE 388 U/L (73-393); POTASSIUM 3.6 MMOL/L (3.5-5.1); SODIUM 142 MMOL/L (135-145); TOTAL CARBON DIOXIDE 27.2 MMOL/L (24-32); TOTAL PROTEIN 7.6 G/DL (6.4-8.2); eGFR > 90 ML/MIN
== END 2021-01-09 23:59 | disposition home or self-care (01) ==
LOC: LAB 10:11
PROVIDERS: ATTEND Physician Assistant
DX: R10.9 Unspecified abdominal pain (principal)
CPT/HCPCS: 36415; 80053; 83690; 85025

== ENCOUNTER 2021-01-09 13:56 | Emergency (ER) | payer BC ==
[2021-01-09] VITALS (9 sets, daily range): BP systolic 107–142; BP diastolic 60–90
[~2021-01-09] VITALS: Ht 149.9 cm; Wt 57.7 kg
[2021-01-09] MEDS ORDERED: ondansetron/PF 4mg/2ml inj IV ONE (14:00)
[2021-01-09] MEDS ORDERED: normal saline 1000ML IV soln IVB ONE (14:00)
[2021-01-09] MEDS ORDERED: morphine 4 MG/ML inj SYRINge IV PRN (14:00)
[2021-01-09 14:35] LABS: BASOPHILS # (AUTO) 0.1 X10'3 (0-0.2); BASOPHILS % (AUTO) 0.8 % (0-1); EOSINOPHILS # (AUTO) 0.2 X10'3 (0-0.9); EOSINOPHILS % (AUTO) 2.2 % (0-6); HEMATOCRIT 39.2 % (35.0-45.0); HEMOGLOBIN 13.1 g/dl (12.0-16.0); LYMPHOCYTES # (AUTO) 2.7 X10'3 (1.1-4.8); LYMPHOCYTES % (AUTO) 26.9 % (21-51); MEAN CORPUSCULAR HEMOGLOBIN 27.8 PG (27.0-31.0); MEAN CORPUSCULAR HGB CONC 33.4 g/dL (33.0-36.5); MEAN CORPUSCULAR VOLUME 83.2 FL (78-98); MEAN PLATELET VOLUME 8.3 FL (7.4-10.4); MONOCYTES # (AUTO) 0.7 X10'3 (0-0.9); MONOCYTES % (AUTO) 7.5 % (2-12); NEUTROPHILS # (AUTO) 6.2 X10'3 (1.8-7.7); NEUTROPHILS % (AUTO) 62.6 % (42-75); PLATELET COUNT 359 X10'3 (140-440); RED BLOOD COUNT 4.72 X10'6 (4.20-5.60); RED CELL DISTRIBUTION WIDTH 15.3 % (11.5-14.5)
[2021-01-09 14:54] LABS: ALANINE AMINOTRANSFERASE 1022 U/L (12-78); ALBUMIN 3.7 G/DL (3.4-5.0); ALBUMIN/GLOBULIN RATIO 0.9 (1.1-1.5); ALKALINE PHOSPHATASE 663 IU/L (46-116); ANION GAP 14 (8-16); ASPARTATE AMINO TRANSFERASE 428 U/L (10-37); BILIRUBIN,TOTAL 0.8 MG/DL (0.1-1.0); BLOOD UREA NITROGEN 8 MG/DL (7-18); BUN/CREATININE RATIO 14.5 (6.6-38.0); CALCIUM 8.9 MG/DL (8.5-10.1); CHLORIDE 104 MMOL/L (99-107); CREATININE 0.55 MG/DL (0.40-0.90); GLUCOSE 87 MG/DL (70-104); LIPASE 263 U/L (73-393); POTASSIUM 3.4 MMOL/L (3.5-5.1); SODIUM 144 MMOL/L (135-145); TOTAL PROTEIN 7.6 G/DL (6.4-8.2); eGFR > 90 ML/MIN
[2021-01-09] MEDS ORDERED: fentaNYL/PF 50MCG/1 ML 2ML syringe ONE (15:01)
[2021-01-09] MEDS ORDERED: MIDAZolam 1 MG/ML 5ML VIAL ONE (15:01)
[2021-01-09] MEDS ORDERED: LIDOcaine Viscous 15ml cup ONE (15:02)
[2021-01-09] MEDS ORDERED: glucagon, human recombinant 1mg kit ONE (15:02)
[2021-01-09] MEDS ORDERED: iohexol 300 MG/1 ML 50ml polymer ONE (15:02)
[2021-01-09] MEDS ORDERED: diphenhydrAMINE 50 mg/ml inj ONE (15:28)
[2021-01-09] MEDS ORDERED: proCHLORperazine 10 MG/2 ml inj ONE (15:29)
--- NOTE | 2021-01-09 18:30 | NUR ---
ASSUMED CARE OF PT. PT AWAKENS WHEN I ENTER ROOM. STILL FEELS DROWSY. DENIES ANY PAIN OR ANY OTHER COMPLAINTS AT PRESENT.
== END 2021-01-09 19:51 | disposition home or self-care (01) ==
LOC: EEVIPCON 13:57 → ER 13:57
DX: K80.51 Calculus of bile duct without cholangitis or cholecystitis with obstruction (principal); Z90.49 Acquired absence of other specified parts of digestive tract; Z79.899 Other long term (current) drug therapy; Z88.8 Allergy status to other drugs, medicaments and biological substances
CPT/HCPCS: 36415; 43262; 43264; 80053; 83690; 85025; 96361; 96374; 96375; 99152; 99153; 99285; C1769; J0780; J1200; J1610; J2250; J2270; J2405; J3010; J7030; J7040; Q9967; Z7512; Z7610; 99284; A4620

== ENCOUNTER 2021-02-16 13:53 | Emergency (ER) | payer BC ==
[~2021-02-16] VITALS: Ht 149.9 cm; Wt 56.8 kg
[2021-02-16] MEDS ORDERED: magnesium 2GM in 50ml NS 50 ML IV ONE (14:05)
[2021-02-16] MEDS ORDERED: ondansetron/PF 4mg/2ml inj IV ONE ×2 (14:05)
[2021-02-16] MEDS ORDERED: normal saline 1000ML IV soln IVB ONE (14:05)
[2021-02-16] MEDS ORDERED: cloNIDine 0.1 mg tablet PO ONE (14:35)
[2021-02-16] MEDS ORDERED: acetaminophen 325mg tablet PO ONE (15:55)
[2021-02-16 16:19] VITALS: BP 119/81
== END 2021-02-16 15:56 | disposition home or self-care (01) ==
LOC: EEVIPCON 13:55 → ER 13:55
DX: I10 Essential (primary) hypertension (principal); R51.9 Headache, unspecified; Z90.49 Acquired absence of other specified parts of digestive tract; Z88.6 Allergy status to analgesic agent; Z79.899 Other long term (current) drug therapy
CPT/HCPCS: 96365; 96366; 96375; 99284; J2405; J3475; J7030

== ENCOUNTER 2021-11-08 10:54 | Outpatient (CLI) | payer BC | END 2021-11-08 23:59 | disposition home or self-care (01) | LOC: LAB 10:54 | PROVIDERS: ATTEND Nurse Practitioner Family | DX: O02.1 Missed abortion (principal) | CPT/HCPCS: 36415; 84702 ==

== ENCOUNTER → 2022-08-23 | Outpatient (CLI) | payer BC ==
[2022-08-23 11:32] LABS: BASOPHILS # (AUTO) 0.1 X10'3 (0-0.2); BASOPHILS % (AUTO) 0.5 % (0-1); EOSINOPHILS # (AUTO) 0.2 X10'3 (0-0.9); EOSINOPHILS % (AUTO) 1.7 % (0-6); HEMATOCRIT 40.8 % (35.0-45.0); HEMOGLOBIN 13.5 g/dl (12.0-16.0); LYMPHOCYTES # (AUTO) 3.5 X10'3 (1.1-4.8); LYMPHOCYTES % (AUTO) 29.9 % (21-51); MEAN CORPUSCULAR HEMOGLOBIN 28.6 PG (27.0-31.0); MEAN CORPUSCULAR HGB CONC 33.2 g/dL (33.0-36.5); MEAN CORPUSCULAR VOLUME 86.2 FL (78-98); MEAN PLATELET VOLUME 8.8 FL (7.4-10.4); MONOCYTES # (AUTO) 0.8 X10'3 (0-0.9); MONOCYTES % (AUTO) 6.4 % (2-12); NEUTROPHILS # (AUTO) 7.3 X10'3 (1.8-7.7); NEUTROPHILS % (AUTO) 61.5 % (42-75); PLATELET COUNT 333 X10'3 (140-440); RED BLOOD COUNT 4.73 X10'6 (4.20-5.60); RED CELL DISTRIBUTION WIDTH 13.4 % (11.5-14.5); WHITE BLOOD COUNT 11.9 X10'3 (4.5-11.0)
[2022-08-23 11:35] LABS: ALANINE AMINOTRANSFERASE 23 U/L (12-78); ALBUMIN 3.8 G/DL (3.4-5.0); ALBUMIN/GLOBULIN RATIO 1.1 (1.1-1.5); ALKALINE PHOSPHATASE 87 IU/L (46-116); ANION GAP 9 (8-16); ASPARTATE AMINO TRANSFERASE 14 U/L (10-37); BILIRUBIN,TOTAL 0.3 MG/DL (0.1-1.0); BLOOD UREA NITROGEN 10 MG/DL (7-18); BUN/CREATININE RATIO 17.2 (10.0-20.0); CALCIUM 8.5 MG/DL (8.5-10.1); CHLORIDE 105 MMOL/L (99-107); CHOL/HDL RATIO 3.3 (0.00-4.99); CHOLESTEROL 190 MG/DL (0-200); CREATININE 0.58 MG/DL (0.40-0.90); GLUCOSE 88 MG/DL (70-104); HDL CHOLESTEROL 57 MG/DL (35-60); LDL CHOLESTEROL 114 MG/DL (50-100); SODIUM 138 MMOL/L (135-145); TOTAL CARBON DIOXIDE 24.4 MMOL/L (24-32); TOTAL PROTEIN 7.3 G/DL (6.4-8.2); TRIGLYCERIDES 86 MG/DL (20-135); eGFR > 90 ML/MIN
[2022-08-24 10:15] LABS: THIIODOTHRONINE, FREE, SERUM 3.2 pg/mL (2.0-4.4)
== END | disposition home or self-care (01) ==
LOC: LAB 10:38
PROVIDERS: ATTEND Physician Assistant
DX: Z00.00 Encounter for general adult medical examination without abnormal findings (principal); E66.3 Overweight; K62.5 Hemorrhage of anus and rectum; R10.9 Unspecified abdominal pain
CPT/HCPCS: 36415; 80053; 80061; 82306; 84439; 84443; 84481; 85025

== ENCOUNTER 2022-09-13 06:59 | Day surgery (SDC) | payer BC ==
[~2022-09-13] VITALS: Ht 149.9 cm; Wt 59.0 kg
[2022-09-13 07:06] VITALS: BP 114/81
[2022-09-13] MEDS ORDERED: ETHI1TAB25 PO (07:28)
[2022-09-13] MEDS ORDERED: LIDOcaine Viscous 15ml cup ONE (07:57)
[2022-09-13] MEDS ORDERED: fentaNYL/PF 50MCG/1 ML 2ML syringe ONE ×2 (07:57→08:40)
[2022-09-13] MEDS ORDERED: MIDAZolam 1 MG/ML 5ML VIAL ONE (07:57)
[2022-09-13] MEDS ORDERED: diphenhydrAMINE 50 mg/ml inj ONE (08:28)
[2022-09-13 09:20] VITALS: BP 167/128
[2022-09-13 09:30] VITALS: BP 157/128
[2022-09-13 09:40] VITALS: BP 95/60
[2022-09-13 09:50] VITALS: BP 105/75
== END 2022-09-13 09:55 | disposition home or self-care (01) ==
LOC: GI LAB 06:59
PROVIDERS: ATTEND Internal Medicine Gastroenterology
DX: R10.84 Generalized abdominal pain (principal); K52.9 Noninfective gastroenteritis and colitis, unspecified; K50.811 Crohn's disease of both small and large intestine with rectal bleeding; K63.3 Ulcer of intestine; K62.89 Other specified diseases of anus and rectum; K29.50 Unspecified chronic gastritis without bleeding; Z80.0 Family history of malignant neoplasm of digestive organs
CPT/HCPCS: 43239; 45380; 99152; 99153; J1200; J2250; J3010; J7030; Z7512; A4620

== ENCOUNTER 2023-06-06 01:16 | Emergency (ER) | payer BC ==
[~2023-06-06] VITALS: Ht 149.9 cm; Wt 61.4 kg
[~2023-06-06 01:16] MED LIST changes: +ETHI1TAB25 PO; -HYDR-3964 PO; -NORE0.3520 PO
[2023-06-06 01:28] VITALS: TEMP 98.4
[2023-06-06] MEDS: ketorolac trometh. 30mg/ml inj. IV ONE (01:57)
[2023-06-06] MEDS: normal saline 1000ml 1,000 ML IV ONE (01:57)
[2023-06-06 02:08] LABS: BASOPHILS # (AUTO) 0.1 X10'3 (0-0.2); BASOPHILS % (AUTO) 1.1 % (0-1); EOSINOPHILS # (AUTO) 0.2 X10'3 (0-0.9); EOSINOPHILS % (AUTO) 1.9 % (0-6); HEMOGLOBIN 13.5 g/dl (12.0-16.0); LYMPHOCYTES # (AUTO) 4.9 X10'3 (1.1-4.8); LYMPHOCYTES % (AUTO) 36.6 % (21-51); MEAN CORPUSCULAR HEMOGLOBIN 28.8 PG (27.0-31.0); MEAN CORPUSCULAR HGB CONC 33.6 g/dL (33.0-36.5); MEAN CORPUSCULAR VOLUME 85.7 FL (78-98); MEAN PLATELET VOLUME 8.8 FL (7.4-10.4); MONOCYTES % (AUTO) 7.6 % (2-12); NEUTROPHILS % (AUTO) 52.8 % (42-75); PLATELET COUNT 344 X10'3 (140-440); RED BLOOD COUNT 4.67 X10'6 (4.20-5.60); RED CELL DISTRIBUTION WIDTH 12.8 % (11.5-14.5); WHITE BLOOD COUNT 13.2 X10'3 (4.5-11.0)
[2023-06-06 02:16] LABS: URINE HCG NEGATIVE (NEG)
[2023-06-06 02:22] LABS: CLARITY,URINE TURBID (Clear); COLOR,URINE RED (Yellow); UA COLLECTION TYPE CLN CATCH MIDSTREAM
[2023-06-06 02:22] LABS: ALANINE AMINOTRANSFERASE 43 U/L (12-78); ALBUMIN 3.9 G/DL (3.4-5.0); ALKALINE PHOSPHATASE 88 IU/L (46-116); ANION GAP 11 (8-16); ASPARTATE AMINO TRANSFERASE 19 U/L (10-37); BILIRUBIN,TOTAL 0.4 MG/DL (0.1-1.0); BLOOD UREA NITROGEN 10 MG/DL (7-18); BUN/CREATININE RATIO 14.5 (10.0-20.0); CALCIUM 8.6 MG/DL (8.5-10.1); CHLORIDE 106 MMOL/L (99-107); CREATININE 0.69 MG/DL (0.40-0.90); GLUCOSE 97 MG/DL (70-104); LIPASE 48 U/L (16-77); POTASSIUM 3.6 MMOL/L (3.5-5.1); SODIUM 140 MMOL/L (135-145); TOTAL CARBON DIOXIDE 22.8 MMOL/L (24-32); TOTAL PROTEIN 7.7 G/DL (6.4-8.2); eCRCL 81 ML/MIN; eGFR > 90 ML/MIN
[2023-06-06 02:27] LABS: BACTERIA,URINE 2+ /HPF (Neg); RBC,URINE TNTC /HPF (0-2); WBC,URINE 0-4 /HPF (0-4)
[2023-06-06 02:28] LABS: MUCUS STRANDS FEW /LPF (Neg); SQUAMOUS EPITHELIAL CELL,UR FEW /LPF (FEW)
[2023-06-06 02:55] VITALS: RESP 16
[2023-06-06] MEDS ORDERED: HYDR-3965 PO (03:36)
[2023-06-06] MEDS ORDERED: FLO0.4C PO (03:36)
[2023-06-06] MEDS ORDERED: CEPH250T PO (03:36)
[2023-06-06] MEDS: CefTRIAXone/D5W-Rocephin 1gm 50 ML IV ONE (03:59)
[2023-06-06 04:28] VITALS: BP 104/81; PULSE 80; O2SAT 98
== END 2023-06-06 04:30 | disposition home or self-care (01) ==
LOC: EEVIPCON 01:16 → ER 01:16
DX: N20.1 Calculus of ureter (principal); N39.0 Urinary tract infection, site not specified; G43.909 Migraine, unspecified, not intractable, without status migrainosus; Z90.49 Acquired absence of other specified parts of digestive tract; Z79.2 Long term (current) use of antibiotics; Z79.899 Other long term (current) drug therapy
CPT/HCPCS: 36415; 74176; 80053; 81001; 81025; 83605; 83690; 85025; 87040; 96361; 96365; 96375; 99285; J0696; J1885; J7030

== ENCOUNTER 2023-06-06 16:53 | Inpatient (IN) | payer BC ==
[~2023-06-06] VITALS: Ht 149.9 cm; Wt 61.4 kg
[~2023-06-06 16:53] MED LIST changes: +CEPH250T PO; +FLO0.4C PO; +HYDR-3965 PO
[2023-06-06] MEDS: ondansetron/PF 4mg/2ml inj IV ONE (18:55)
[2023-06-06] MEDS: HYDROmorphone 1 mg/ml syringe IV ONE (18:55)
[2023-06-06] MEDS: normal saline 1000ml 1,000 ML IV ONE ×2 (18:58→21:02)
[2023-06-06] MEDS: ketorolac trometh. 30mg/ml inj. IV ONE (19:40)
[2023-06-06] MEDS: HYDROmorphone inj. 0.5 MG/0.5 ML DISP.SYRIN IV ONE (20:01)
[2023-06-06 21:46] LABS: BILIRUBIN,URINE NEGATIVE (Neg); CLARITY,URINE CLOUDY (Clear); COLOR,URINE YELLOW (Yellow); GLUCOSE, URINE NEGATIVE (Neg); KETONES,URINE >=80 mg/dl (Neg); LEUKOCYTE ESTERASE ,URINE TRACE (Neg); NITRITES, URINE NEGATIVE (Neg); OCCULT BLOOD,URINE LARGE (Neg); PROTEIN,URINE TRACE mg/dl (Neg); UROBILINOGEN,URINE 0.2 E.U/dL (0.2-1.0)
[2023-06-06 21:47] LABS: BASOPHILS # (AUTO) 0.1 X10'3 (0-0.2); BASOPHILS % (AUTO) 0.6 % (0-1); EOSINOPHILS % (AUTO) 0 % (0-6); HEMATOCRIT 32.5 % (35.0-45.0); LYMPHOCYTES # (AUTO) 2.1 X10'3 (1.1-4.8); LYMPHOCYTES % (AUTO) 11.4 % (21-51); MEAN CORPUSCULAR HEMOGLOBIN 29.3 PG (27.0-31.0); MEAN CORPUSCULAR HGB CONC 33.8 g/dL (33.0-36.5); MEAN CORPUSCULAR VOLUME 86.6 FL (78-98); MEAN PLATELET VOLUME 8.8 FL (7.4-10.4); MONOCYTES # (AUTO) 0.9 X10'3 (0-0.9); NEUTROPHILS # (AUTO) 15.3 X10'3 (1.8-7.7); PLATELET COUNT 283 X10'3 (140-440); RED BLOOD COUNT 3.76 X10'6 (4.20-5.60); RED CELL DISTRIBUTION WIDTH 12.9 % (11.5-14.5); WHITE BLOOD COUNT 18.5 X10'3 (4.5-11.0)
[2023-06-06 21:50] LABS: ALBUMIN 3.1 G/DL (3.4-5.0); ANION GAP 12 (8-16); BLOOD UREA NITROGEN 9 MG/DL (7-18); BUN/CREATININE RATIO 12.2 (10.0-20.0); CALCIUM 7.2 MG/DL (8.5-10.1); CHLORIDE 112 MMOL/L (99-107); CREATININE 0.74 MG/DL (0.40-0.90); GLUCOSE 98 MG/DL (70-104); LIPASE 33 U/L (16-77); POTASSIUM 3.6 MMOL/L (3.5-5.1); SODIUM 142 MMOL/L (135-145); TOTAL CARBON DIOXIDE 18.5 MMOL/L (24-32); eCRCL 76 ML/MIN; eGFR > 90 ML/MIN
[2023-06-06 21:56] LABS: UA COLLECTION TYPE CLN CATCH MIDSTREAM
[2023-06-06 21:58] LABS: BACTERIA,URINE 2+ /HPF (Neg); MUCUS STRANDS FEW /LPF (Neg); RBC,URINE TNTC /HPF (0-2); SQUAMOUS EPITHELIAL CELL,UR FEW /LPF (FEW); TRANSITIONAL EPI CELLS,URINE FEW /HPF
[2023-06-06] MEDS ORDERED: magnesium 2GM in 50ml NS 50 ML IV PRN (22:00)
[2023-06-06] MEDS ORDERED: acetaminophen 325mg tablet PO PRN ×2 (22:00)
[2023-06-06] MEDS ORDERED: potassium Cl 40MEQ/1/2NS 520ml 520 ML IV PRN (22:00)
[2023-06-06] MEDS ORDERED: potassium Cl 20 mEq SR tablet PO PRN (22:00)
[2023-06-06] MEDS ORDERED: HYDROmorphone inj. 0.5 MG/0.5 ML DISP.SYRIN IV PRN (22:00)
[2023-06-06] MEDS ORDERED: magnesium 4gm in 100ml NS 100 ML IV PRN (22:00)
[2023-06-06] MEDS ORDERED: mag hydrox/Alum hydrox/simeth 30ml oral suspension PO PRN (22:00)
[2023-06-06] MEDS: CefTRIAXone/D5W-Rocephin 1gm 50 ML IV SCH (22:38)
[2023-06-06] MEDS: normal saline 1000ml 1,000 ML IV SCH (22:38)
[2023-06-06] MEDS: HYDROmorphone/PF 0.2 MG/ML SYRINGE IV PRN (22:38)
[2023-06-07] VITALS (12 sets, daily range): BP systolic 88–124; BP diastolic 51–88; PULSE 81–107; RESP 14–20; TEMP 97.5–99.4; O2SAT 95–100
[2023-06-07] MEDS: ondansetron/PF 4mg/2ml inj IV PRN (00:14)
[2023-06-07] MEDS: pantoprazole 40 MG vial IV SCH (01:23)
[2023-06-07] MEDS ORDERED: morphine 2 MG/ML inj. syringe IV PRN ×2 (01:35→12:10)
[2023-06-07] MEDS ORDERED: HYDROcodone/acetaminophen 5mg/325mg tablet PO PRN (01:35)
[2023-06-07] MEDS: proCHLORperazine 10 MG/2 ml inj IM ONE (01:40)
[2023-06-07] MEDS: ketorolac tromethamine 15mg/ml inj. IV ONE (01:45)
[2023-06-07] MEDS: diphenhydrAMINE 50 mg/ml inj IV ONE (01:47)
[2023-06-07] MEDS: morphine 2 MG/ML inj. syringe IV PRN (04:10)
[2023-06-07 06:14] LABS: BASOPHILS # (AUTO) 0.1 X10'3 (0-0.2); BASOPHILS % (AUTO) 0.4 % (0-1); EOSINOPHILS # (AUTO) 0.1 X10'3 (0-0.9); EOSINOPHILS % (AUTO) 0.4 % (0-6); HEMATOCRIT 34.8 % (35.0-45.0); HEMOGLOBIN 11.4 g/dl (12.0-16.0); LYMPHOCYTES # (AUTO) 2.5 X10'3 (1.1-4.8); LYMPHOCYTES % (AUTO) 15.6 % (21-51); MEAN CORPUSCULAR HEMOGLOBIN 28.4 PG (27.0-31.0); MEAN CORPUSCULAR HGB CONC 32.8 g/dL (33.0-36.5); MEAN CORPUSCULAR VOLUME 86.6 FL (78-98); MEAN PLATELET VOLUME 9.8 FL (7.4-10.4); MONOCYTES # (AUTO) 1.2 X10'3 (0-0.9); MONOCYTES % (AUTO) 7.6 % (2-12); NEUTROPHILS # (AUTO) 12.1 X10'3 (1.8-7.7); PLATELET COUNT 304 X10'3 (140-440); RED BLOOD COUNT 4.01 X10'6 (4.20-5.60); RED CELL DISTRIBUTION WIDTH 12.9 % (11.5-14.5)
[2023-06-07 06:16] LABS: ALANINE AMINOTRANSFERASE 25 U/L (12-78); ALBUMIN 2.9 G/DL (3.4-5.0); ALBUMIN/GLOBULIN RATIO 0.9 (1.1-1.5); ALKALINE PHOSPHATASE 77 IU/L (46-116); ANION GAP 13 (8-16); ASPARTATE AMINO TRANSFERASE 19 U/L (10-37); BILIRUBIN,TOTAL 0.5 MG/DL (0.1-1.0); BLOOD UREA NITROGEN 6 MG/DL (7-18); BUN/CREATININE RATIO 7.9 (10.0-20.0); CALCIUM 6.7 MG/DL (8.5-10.1); CHLORIDE 107 MMOL/L (99-107); CREATININE 0.76 MG/DL (0.40-0.90); GLUCOSE 73 MG/DL (70-104); MAGNESIUM 1.8 MG/DL (1.5-2.4); POTASSIUM 3.8 MMOL/L (3.5-5.1); SODIUM 137 MMOL/L (135-145); TOTAL PROTEIN 6.2 G/DL (6.4-8.2); eCRCL 74 ML/MIN; eGFR 89 ML/MIN
[2023-06-07] MEDS: K and/or MAG REPLACEMENT MC SCH (08:00)
[2023-06-07] MEDS: tamsulosin 0.4mg capsule PO SCH (09:27)
[2023-06-07] MEDS: ketorolac tromethamine 15mg/ml inj. IV PRN (09:29)
[2023-06-07] MEDS: morphine 2 MG/ML inj. syringe IV ONE (11:05)
[2023-06-07] MEDS: proCHLORperazine 10 MG/2 ml inj IV ONE (11:22)
[2023-06-07] MEDS: ketorolac trometh. 30mg/ml inj. IV ONE (11:23)
[2023-06-07] MEDS ORDERED: naloxone 0.4 mg/ml inj IV PRN (13:30)
[2023-06-07] MEDS: morphine/NS PCA 1mg/ml 50ml 50 ML IV SCH (14:57)
[2023-06-08] VITALS (8 sets, daily range): BP systolic 97–135; BP diastolic 56–81; PULSE 61–96; RESP 16–18; TEMP 97.8–99.1; O2SAT 97–100
[2023-06-08 03:10] LABS: BASOPHILS # (AUTO) 0.1 X10'3 (0-0.2); BASOPHILS % (AUTO) 0.6 % (0-1); EOSINOPHILS # (AUTO) 0.1 X10'3 (0-0.9); EOSINOPHILS % (AUTO) 0.9 % (0-6); HEMATOCRIT 35.4 % (35.0-45.0); HEMOGLOBIN 11.7 g/dl (12.0-16.0); LYMPHOCYTES # (AUTO) 1.8 X10'3 (1.1-4.8); LYMPHOCYTES % (AUTO) 14.5 % (21-51); MEAN CORPUSCULAR HEMOGLOBIN 28.8 PG (27.0-31.0); MEAN CORPUSCULAR VOLUME 87.1 FL (78-98); MEAN PLATELET VOLUME 9.3 FL (7.4-10.4); MONOCYTES # (AUTO) 1.2 X10'3 (0-0.9); MONOCYTES % (AUTO) 9.5 % (2-12); NEUTROPHILS # (AUTO) 9.5 X10'3 (1.8-7.7); NEUTROPHILS % (AUTO) 74.5 % (42-75); PLATELET COUNT 270 X10'3 (140-440); RED BLOOD COUNT 4.06 X10'6 (4.20-5.60); RED CELL DISTRIBUTION WIDTH 13.2 % (11.5-14.5); WHITE BLOOD COUNT 12.7 X10'3 (4.5-11.0)
[2023-06-08 03:23] LABS: ALANINE AMINOTRANSFERASE 22 U/L (12-78); ALBUMIN 2.7 G/DL (3.4-5.0); ALBUMIN/GLOBULIN RATIO 0.9 (1.1-1.5); ALKALINE PHOSPHATASE 69 IU/L (46-116); ANION GAP 13 (8-16); ASPARTATE AMINO TRANSFERASE 18 U/L (10-37); BILIRUBIN,TOTAL 0.3 MG/DL (0.1-1.0); BLOOD UREA NITROGEN 4 MG/DL (7-18); BUN/CREATININE RATIO 4.9 (10.0-20.0); CALCIUM 7.2 MG/DL (8.5-10.1); CHLORIDE 108 MMOL/L (99-107); CREATININE 0.82 MG/DL (0.40-0.90); GLUCOSE 72 MG/DL (70-104); MAGNESIUM 1.9 MG/DL (1.5-2.4); POTASSIUM 3.4 MMOL/L (3.5-5.1); SODIUM 139 MMOL/L (135-145); TOTAL CARBON DIOXIDE 18.3 MMOL/L (24-32); TOTAL PROTEIN 5.7 G/DL (6.4-8.2); eCRCL 68 ML/MIN; eGFR 82 ML/MIN
[2023-06-08] MEDS: potassium Cl 20 mEq SR tablet PO PRN (11:41)
[2023-06-08] MEDS: PCA WASTE DOCUMENTATION 1 MG ML MC SCH (12:05)
[2023-06-08] MEDS: HYDROcodone/acetaminophen 10/325mg tab PO PRN (21:09)
[2023-06-09 06:10] LABS: BASOPHILS # (AUTO) 0.1 X10'3 (0-0.2); BASOPHILS % (AUTO) 0.6 % (0-1); EOSINOPHILS # (AUTO) 0.3 X10'3 (0-0.9); EOSINOPHILS % (AUTO) 3.2 % (0-6); HEMATOCRIT 30.8 % (35.0-45.0); HEMOGLOBIN 10.2 g/dl (12.0-16.0); LYMPHOCYTES # (AUTO) 2.9 X10'3 (1.1-4.8); LYMPHOCYTES % (AUTO) 30.6 % (21-51); MEAN CORPUSCULAR HEMOGLOBIN 28.7 PG (27.0-31.0); MEAN CORPUSCULAR HGB CONC 32.9 g/dL (33.0-36.5); MEAN CORPUSCULAR VOLUME 87.1 FL (78-98); MEAN PLATELET VOLUME 9.2 FL (7.4-10.4); MONOCYTES # (AUTO) 0.8 X10'3 (0-0.9); MONOCYTES % (AUTO) 8.9 % (2-12); NEUTROPHILS # (AUTO) 5.4 X10'3 (1.8-7.7); NEUTROPHILS % (AUTO) 56.7 % (42-75); PLATELET COUNT 245 X10'3 (140-440); RED BLOOD COUNT 3.54 X10'6 (4.20-5.60); RED CELL DISTRIBUTION WIDTH 13.3 % (11.5-14.5); WHITE BLOOD COUNT 9.6 X10'3 (4.5-11.0)
[2023-06-09 06:17] LABS: ALANINE AMINOTRANSFERASE 19 U/L (12-78); ALBUMIN 2.4 G/DL (3.4-5.0); ALBUMIN/GLOBULIN RATIO 0.8 (1.1-1.5); ALKALINE PHOSPHATASE 65 IU/L (46-116); ANION GAP 7 (8-16); ASPARTATE AMINO TRANSFERASE 13 U/L (10-37); BILIRUBIN,TOTAL 0.2 MG/DL (0.1-1.0); BLOOD UREA NITROGEN 2 MG/DL (7-18); BUN/CREATININE RATIO 2.7 (10.0-20.0); CHLORIDE 111 MMOL/L (99-107); CREATININE 0.74 MG/DL (0.40-0.90); GLUCOSE 74 MG/DL (70-104); SODIUM 140 MMOL/L (135-145); TOTAL CARBON DIOXIDE 21.6 MMOL/L (24-32); TOTAL PROTEIN 5.3 G/DL (6.4-8.2); eCRCL 76 ML/MIN; eGFR > 90 ML/MIN
[2023-06-09 07:16] VITALS: BP 95/55; PULSE 87; RESP 18; TEMP 97; O2SAT 99
[2023-06-09 07:52] VITALS: RESP 18; O2SAT 100
[2023-06-09] MEDS ORDERED: CIPR-259 PO (09:06)
[2023-06-09] MEDS ORDERED: ACET-1008 PO (09:06)
[2023-06-09 09:08] VITALS: RESP 16; O2SAT 98
[2023-06-09] MEDS ORDERED: DOCU-148 PO (09:09)
== END 2023-06-09 09:40 | disposition home or self-care (01) | DRG 690 ==
LOC: ER 16:54 → EEVIPCON 16:54 → ED HOLD 22:45 → UNDOADMIN 22:45 → ED HOLD 23:55 → SUR 3N 23:55 → ED HOLD 06-07 03:46 → SUR 3N 06-07 03:46 → EEVIPCON 06-07 03:46
PROVIDERS: ADMIT Student in an Organized Health Care Education/Training Program; ATTEND Family Medicine
DX: N13.6 Pyonephrosis (principal); D72.829 Elevated white blood cell count, unspecified; Z79.899 Other long term (current) drug therapy
CPT/HCPCS: 36415; 76770; 80048; 80053; 81001; 83605; 83690; 83735; 84145; 85025; 87040; 87081; 87088; 99285; C9113; G0378; J0696; J0780; J1170; J1200; J1885; J2270; J2405; J7030

== ENCOUNTER 2023-06-11 07:19 | Inpatient (IN) | payer BC ==
[~2023-06-11] VITALS: Ht 149.9 cm; Wt 60.0 kg
[2023-06-11] VITALS (13 sets, daily range): BP systolic 97–118; BP diastolic 60–89; PULSE 70–100; RESP 11–17; TEMP 97.9–98.5; O2SAT 97–100
[~2023-06-11 07:19] MED LIST changes: +ACET-1008 PO; -CEPH250T PO; +CIPR-259 PO; +DOCU-148 PO
[2023-06-11 08:08] LABS: BILIRUBIN,URINE SMALL (Neg); CLARITY,URINE CLOUDY (Clear); GLUCOSE, URINE NEGATIVE (Neg); KETONES,URINE >=80 mg/dl (Neg); LEUKOCYTE ESTERASE ,URINE TRACE (Neg); NITRITES, URINE NEGATIVE (Neg); OCCULT BLOOD,URINE LARGE (Neg); PROTEIN,URINE TRACE mg/dl (Neg); UROBILINOGEN,URINE 0.2 E.U/dL (0.2-1.0)
[2023-06-11 08:16] LABS: URINE HCG NEGATIVE (NEG)
[2023-06-11 08:21] LABS: COLOR,URINE DARK YELLOW (Yellow); UA COLLECTION TYPE CLN CATCH MIDSTREAM
[2023-06-11 08:22] LABS: MUCUS STRANDS MANY /LPF (Neg); SQUAMOUS EPITHELIAL CELL,UR MANY /LPF (FEW)
[2023-06-11 08:23] LABS: AMORPHOUS PHOSPHATES 4+; RBC,URINE TNTC /HPF (0-2)
[2023-06-11 08:24] LABS: BACTERIA,URINE FEW /HPF (Neg); TRANSITIONAL EPI CELLS,URINE FEW /HPF; WBC,URINE 50-100 /HPF (0-4)
[2023-06-11] MEDS: ondansetron/PF 4mg/2ml inj IV ONE (08:45)
[2023-06-11] MEDS: ketorolac tromethamine 15mg/ml inj. IV ONE (08:45)
[2023-06-11] MEDS: normal saline 1000ML IV soln IVB ONE (08:45)
[2023-06-11] MEDS ORDERED: morphine 2 MG/ML inj. syringe IV PRN ×3 (09:50→13:55)
[2023-06-11 10:42] LABS: BASOPHILS # (AUTO) 0.1 X10'3 (0-0.2); BASOPHILS % (AUTO) 0.6 % (0-1); EOSINOPHILS # (AUTO) 0.2 X10'3 (0-0.9); EOSINOPHILS % (AUTO) 1.7 % (0-6); HEMATOCRIT 34.5 % (35.0-45.0); HEMOGLOBIN 11.4 g/dl (12.0-16.0); LYMPHOCYTES % (AUTO) 18.1 % (21-51); MEAN CORPUSCULAR HEMOGLOBIN 28.7 PG (27.0-31.0); MEAN CORPUSCULAR HGB CONC 32.9 g/dL (33.0-36.5); MEAN CORPUSCULAR VOLUME 87.1 FL (78-98); MEAN PLATELET VOLUME 8.9 FL (7.4-10.4); MONOCYTES % (AUTO) 8.9 % (2-12); NEUTROPHILS # (AUTO) 7.7 X10'3 (1.8-7.7); NEUTROPHILS % (AUTO) 70.7 % (42-75); PLATELET COUNT 328 X10'3 (140-440); RED BLOOD COUNT 3.96 X10'6 (4.20-5.60); RED CELL DISTRIBUTION WIDTH 13.3 % (11.5-14.5); WHITE BLOOD COUNT 10.9 X10'3 (4.5-11.0)
[2023-06-11 10:54] LABS: ALBUMIN 2.9 G/DL (3.4-5.0); ANION GAP 11 (8-16); BLOOD UREA NITROGEN 5 MG/DL (7-18); BUN/CREATININE RATIO 5.3 (10.0-20.0); CHLORIDE 109 MMOL/L (99-107); CREATININE 0.94 MG/DL (0.40-0.90); GLUCOSE 77 MG/DL (70-104); POTASSIUM 3.4 MMOL/L (3.5-5.1); SODIUM 142 MMOL/L (135-145); TOTAL CARBON DIOXIDE 21.6 MMOL/L (24-32); eCRCL 60 ML/MIN; eGFR 70 ML/MIN
[2023-06-11] MEDS ORDERED: mag hydrox/Alum hydrox/simeth 30ml oral suspension PO PRN (11:50)
[2023-06-11] MEDS ORDERED: magnesium 2GM in 50ml NS 50 ML IV PRN (11:50)
[2023-06-11] MEDS ORDERED: acetaminophen 325mg tablet PO PRN ×2 (11:50)
[2023-06-11] MEDS ORDERED: HYDROcodone/acetaminophen 5mg/325mg tablet PO PRN (11:50)
[2023-06-11] MEDS ORDERED: magnesium Cl slow-release 64mg tablet PO PRN (11:50)
[2023-06-11] MEDS ORDERED: potassium Cl 20 mEq SR tablet PO PRN ×2 (11:50)
[2023-06-11] MEDS ORDERED: HYDROcodone/acetaminophen 10/325mg tab PO PRN (11:50)
[2023-06-11] MEDS ORDERED: magnesium 4gm in 100ml NS 100 ML IV PRN (11:50)
[2023-06-11] MEDS ORDERED: potassium Cl 40MEQ/1/2NS 520ml 520 ML IV PRN (11:50)
[2023-06-11] MEDS ORDERED: ondansetron/PF 4mg/2ml inj IV PRN ×2 (11:50→13:55)
[2023-06-11] MEDS ORDERED: magnesium hydroxide 30ml (MOM) UD suspension PO PRN (11:50)
[2023-06-11] MEDS: CefTRIAXone/D5W-Rocephin 1gm 50 ML IV ONE ×2 (11:51→12:14)
[2023-06-11] MEDS ORDERED: ketorolac trometh. 30mg/ml inj. IV PRN (12:15)
[2023-06-11] MEDS ORDERED: ketorolac tromethamine 15mg/ml inj. IV PRN ×2 (12:34→12:35)
[2023-06-11] MEDS ORDERED: NO HOME MEDS (12:41)
[2023-06-11] MEDS: normal saline 1000ml 1,000 ML IV SCH (12:59)
[2023-06-11 13:22] LABS: MAGNESIUM 1.8 MG/DL (1.5-2.4)
[2023-06-11] MEDS ORDERED: fentaNYL/PF 50MCG/1 ML 2ML syringe IV PRN ×2 (13:55)
[2023-06-11] MEDS ORDERED: hydrALAZINE 20mg/ml inj. IV PRN (13:55)
[2023-06-11] MEDS ORDERED: morphine 4 MG/ML inj SYRINge IV PRN (13:55)
[2023-06-11] MEDS: ringers solution, lacted 1,000 ML IV SCH (13:55)
[2023-06-11] MEDS ORDERED: labetalol 20mg/4ml (5mg/ml) syringe IV PRN (13:55)
[2023-06-11] MEDS ORDERED: fentaNYL/PF 50MCG/1 ML 2ML syringe ONE (14:02)
[2023-06-11] MEDS ORDERED: midazolam 1 mg/ML 2ml injection ONE (14:02)
[2023-06-11] MEDS ORDERED: ondansetron/PF 4mg/2ml inj ONE (14:03)
[2023-06-11] MEDS ORDERED: dexamethasone sod phosphate 4mg/ml inj. ONE (14:03)
[2023-06-11] MEDS ORDERED: iohexol 300 MG/1 ML 50ml polymer ONE (14:04)
[2023-06-11] MEDS ORDERED: sevoflurane 250ml liquid IH ONE (14:41)
[2023-06-11] MEDS ORDERED: metoprolol tartrate 1mg/ml inj IV ONE (14:55)
[2023-06-11] MEDS: iohexol 300 MG/1 ML 50ml polymer IV ONE (15:10)
[2023-06-11] MEDS: K and/or MAG REPLACEMENT MC SCH (20:00)
[2023-06-12 01:45] VITALS: BP 114/75; PULSE 84; RESP 13; TEMP 97.7; O2SAT 98
[2023-06-12 06:00] VITALS: BP_SYST 108; BP_SYST 131; BP_DIAS 52; BP_DIAS 71; PULSE 71; PULSE 88; RESP 13; RESP 14; TEMP 98.3; O2SAT 95; O2SAT 97
[2023-06-12 06:31] LABS: BASOPHILS % (AUTO) 0.3 % (0-1); EOSINOPHILS % (AUTO) 0 % (0-6); HEMATOCRIT 34.8 % (35.0-45.0); HEMOGLOBIN 11.8 g/dl (12.0-16.0); LYMPHOCYTES # (AUTO) 1.3 X10'3 (1.1-4.8); LYMPHOCYTES % (AUTO) 14.2 % (21-51); MEAN CORPUSCULAR HEMOGLOBIN 29.3 PG (27.0-31.0); MONOCYTES # (AUTO) 0.4 X10'3 (0-0.9); MONOCYTES % (AUTO) 4.6 % (2-12); NEUTROPHILS # (AUTO) 7.6 X10'3 (1.8-7.7); NEUTROPHILS % (AUTO) 80.9 % (42-75); PLATELET COUNT 330 X10'3 (140-440); RED BLOOD COUNT 4.04 X10'6 (4.20-5.60); RED CELL DISTRIBUTION WIDTH 13.2 % (11.5-14.5); WHITE BLOOD COUNT 9.4 X10'3 (4.5-11.0)
[2023-06-12 06:47] LABS: ALBUMIN 2.7 G/DL (3.4-5.0); ANION GAP 7 (8-16); BLOOD UREA NITROGEN 3 MG/DL (7-18); BUN/CREATININE RATIO 5.5 (10.0-20.0); CALCIUM 7.7 MG/DL (8.5-10.1); CHLORIDE 107 MMOL/L (99-107); CREATININE 0.55 MG/DL (0.40-0.90); GLUCOSE 92 MG/DL (70-104); MAGNESIUM 1.7 MG/DL (1.5-2.4); PHOSPHORUS 3.5 MG/DL (2.3-4.5); POTASSIUM 3.6 MMOL/L (3.5-5.1); SODIUM 137 MMOL/L (135-145); TOTAL CARBON DIOXIDE 22.6 MMOL/L (24-32); eCRCL 102 ML/MIN; eGFR > 90 ML/MIN
[2023-06-12 07:06] VITALS: RESP 16
[2023-06-12] MEDS: CefTRIAXone/D5W-Rocephin 1gm 50 ML IV SCH (08:39)
[2023-06-12 10:30] VITALS: BP 120/83; PULSE 81; RESP 16; TEMP 98.7; O2SAT 99
[2023-06-12] MEDS ORDERED: SULF1TAB49 PO (11:12)
[2023-06-12 12:20] VITALS: RESP 14
== END 2023-06-12 12:40 | disposition home or self-care (01) | DRG 660 ==
LOC: ER 07:19 → ED HOLD 11:52 → ORTHO 4S 17:05
PROVIDERS: ADMIT Internal Medicine; ATTEND Internal Medicine
PROC: 0T778DZ Dilation of Left Ureter with Intraluminal Device, Via Natural or Artificial Opening Endoscopic (ICD-10-PCS; 2023-06-11)
PROC: BT1F1ZZ Fluoroscopy of Left Kidney, Ureter and Bladder using Low Osmolar Contrast (ICD-10-PCS; principal; 2023-06-11 14:41)
DX: N13.6 Pyonephrosis (principal); K50.90 Crohn's disease, unspecified, without complications; G43.909 Migraine, unspecified, not intractable, without status migrainosus; Z90.49 Acquired absence of other specified parts of digestive tract; Z87.442 Personal history of urinary calculi
CPT/HCPCS: 96365; 96375; 99285; Z7506; 36415; 76000; 76770; 80048; 81001; 81025; 83605; 83735; 84100; 85025; 87040; 87081; A4618; C1758; C1769; C2617; G0378; J0696; J1100; J1885; J2250; J2405; J2704; J3010; J3490; J7030; Q9967

== ENCOUNTER 2023-07-03 08:18 | Outpatient (CLI) | payer BC ==
[~2023-07-03 08:18] MED LIST changes: -ACET-1008 PO; -CIPR-259 PO; -DOCU-148 PO; -ETHI1TAB25 PO; -FLO0.4C PO; -HYDR-3965 PO; +NO HOME MEDS
== END 2023-07-03 23:59 | disposition home or self-care (01) ==
LOC: RAD 08:18
PROVIDERS: ATTEND Nurse Practitioner Family
DX: D25.9 Leiomyoma of uterus, unspecified (principal); N88.8 Other specified noninflammatory disorders of cervix uteri; N92.6 Irregular menstruation, unspecified
CPT/HCPCS: 76830; 76856; 93976

== ENCOUNTER 2023-07-08 10:59 | Day surgery (SDC) | payer BC ==
[2023-07-01 09:44] LABS: BASOPHILS # (AUTO) 0.1 X10'3 (0-0.2); BASOPHILS % (AUTO) 1.3 % (0-1); EOSINOPHILS # (AUTO) 0.3 X10'3 (0-0.9); EOSINOPHILS % (AUTO) 2.8 % (0-6); LYMPHOCYTES # (AUTO) 3.9 X10'3 (1.1-4.8); LYMPHOCYTES % (AUTO) 42.2 % (21-51); MEAN CORPUSCULAR HGB CONC 33.7 g/dL (33.0-36.5); MEAN PLATELET VOLUME 8.5 FL (7.4-10.4); MONOCYTES # (AUTO) 0.7 X10'3 (0-0.9); MONOCYTES % (AUTO) 7.8 % (2-12); NEUTROPHILS # (AUTO) 4.2 X10'3 (1.8-7.7); NEUTROPHILS % (AUTO) 45.9 % (42-75); PRE OP HEMATOCRIT 39.1 % (35.0-45.0); PRE OP HEMOGLOBIN 13.2 g/dL (12.0-16.0); PRE OP PLATELET COUNT 371 X10'3 (140-440); PRE OP WHITE BLOOD COUNT 9.2 10'3 (4.8-10.8); RED BLOOD COUNT 4.55 X10'6 (4.20-5.60); RED CELL DISTRIBUTION WIDTH 13.5 % (11.5-14.5)
[2023-07-01 09:59] LABS: ALBUMIN 4.1 G/DL (3.4-5.0); ALBUMIN/GLOBULIN RATIO 1.1 (1.1-1.5); ALKALINE PHOSPHATASE 98 IU/L (46-116); BLOOD UREA NITROGEN 12 MG/DL (7-18); CALCIUM 9.3 MG/DL (8.5-10.1); CHLORIDE 104 MMOL/L (99-107); CREATININE 0.63 MG/DL (0.40-0.90); PRE OP ALT 38 U/L (30-65); PRE OP ANION GAP 10 (8-16); PRE OP AST 19 U/L (10-37); PRE OP BILIRUB, TOTAL 0.5 MG/DL (0.0-1.0); PRE OP GLUCOSE 88 MG/DL (70-104); PRE OP POTASSIUM 3.9 MMOL/L (3.4-5.1); PRE OP SODIUM 141 MMOL/L (135-145); eGFR > 90 ML/MIN
[2023-07-01 10:29] LABS: HCG SERUM QL NEGATIVE
[~2023-07-08] VITALS: Ht 149.9 cm; Wt 59.0 kg
[2023-07-08 11:07] VITALS: BP 106/67; PULSE 80; RESP 16; TEMP 98.1; O2SAT 99
[2023-07-08] MEDS ORDERED: iohexol 300 MG/1 ML 50ml polymer ONE (11:14)
[2023-07-08] MEDS: famotidine 20mg tablet PO ONE (11:54)
[2023-07-08] MEDS: ringers solution, lacted 1,000 ML IV SCH (11:54)
[2023-07-08] MEDS: cefazolin 2gm/D5W 100mL 100 ML IV ONE (11:55)
[2023-07-08] MEDS ORDERED: sevoflurane 250ml liquid IH ONE (13:06)
[2023-07-08] MEDS ORDERED: fentaNYL/PF 50MCG/1 ML 2ML syringe ONE (13:09)
[2023-07-08] MEDS ORDERED: propofol inj 20 ML IV ONE (13:10)
[2023-07-08] MEDS ORDERED: midazolam 1 mg/ML 2ml injection ONE (13:10)
[2023-07-08] MEDS: iohexol 350 MG/ML 50ML vial IV ONE (13:25)
[2023-07-08] MEDS ORDERED: ondansetron/PF 4mg/2ml inj ONE (13:45)
[2023-07-08] MEDS ORDERED: dexamethasone sod phosphate 4mg/ml inj. ONE (13:45)
[2023-07-08 13:51] VITALS: BP 109/69; PULSE 82; RESP 14; O2SAT 98
[2023-07-08 14:00] VITALS: BP 96/60; PULSE 69; RESP 13; O2SAT 95
[2023-07-08] MEDS ORDERED: ondansetron/PF 4mg/2ml inj IV PRN (14:00)
[2023-07-08] MEDS ORDERED: morphine 4 MG/ML inj SYRINge IV PRN (14:00)
[2023-07-08] MEDS ORDERED: proCHLORperazine 10 MG/2 ml inj IV PRN (14:00)
[2023-07-08] MEDS ORDERED: morphine 2 MG/ML inj. syringe IV PRN (14:00)
[2023-07-08] MEDS ORDERED: ringers solution, lacted 1,000 ML IV SCH (14:00)
[2023-07-08] MEDS ORDERED: meperidine/PF 25mg/ml syringe IV PRN ×3 (14:00)
[2023-07-08 14:10] VITALS: BP 110/67; PULSE 80; RESP 12; O2SAT 96
[2023-07-08 14:20] VITALS: BP 95/66; PULSE 72; RESP 11; O2SAT 98
[2023-07-08 14:30] VITALS: BP 96/74; PULSE 69; RESP 10; O2SAT 98
== END 2023-07-08 14:41 | disposition home or self-care (01) ==
LOC: PAS 10:59
PROVIDERS: ATTEND Urology
DX: N20.1 Calculus of ureter (principal); F41.9 Anxiety disorder, unspecified; G43.909 Migraine, unspecified, not intractable, without status migrainosus; Z87.440 Personal history of urinary (tract) infections; Z87.442 Personal history of urinary calculi; Z90.49 Acquired absence of other specified parts of digestive tract; Z98.890 Other specified postprocedural states
CPT/HCPCS: 36415; 52310; 74420; 80053; 82948; 84703; 85025; 93005; C1769; J0690; J1100; J2250; J2405; J2704; J3010; J7030; J7120; Q9967; Z7506; Z7512; 76000; A4618; A7000

== ENCOUNTER 2023-10-17 16:05 | Outpatient (CLI) | payer BC ==
[2023-10-17 16:50] LABS: BASOPHILS # (AUTO) 0.1 X10'3 (0-0.2); HEMATOCRIT 38.7 % (35.0-45.0); LYMPHOCYTES # (AUTO) 3.8 X10'3 (1.1-4.8); MEAN PLATELET VOLUME 9.6 FL (7.4-10.4)
[2023-10-17 16:51] LABS: BASOPHILS % (AUTO) 0.7 % (0-1); EOSINOPHILS # (AUTO) 0.2 X10'3 (0-0.9); EOSINOPHILS % (AUTO) 1.3 % (0-6); LYMPHOCYTES % (AUTO) 29.1 % (21-51); MEAN CORPUSCULAR HEMOGLOBIN 28.9 PG (27.0-31.0); MEAN CORPUSCULAR HGB CONC 33.5 g/dL (33.0-36.5); MEAN CORPUSCULAR VOLUME 86.3 FL (78-98); MONOCYTES # (AUTO) 0.9 X10'3 (0-0.9); MONOCYTES % (AUTO) 6.7 % (2-12); NEUTROPHILS % (AUTO) 62.2 % (42-75); PLATELET COUNT 305 X10'3 (140-440); RED BLOOD COUNT 4.48 X10'6 (4.20-5.60); RED CELL DISTRIBUTION WIDTH 13.8 % (11.5-14.5); WHITE BLOOD COUNT 12.9 X10'3 (4.5-11.0)
[2023-10-17 17:11] LABS: FREE T4 (FREE THYROXINE) 1.1 NG/DL (0.73-1.40); THYROID STIMULATING HORMONE 0.38 ulU/ml (0.34-4.50)
[2023-10-17 17:17] LABS: HIV ANTIBODY 1&2 RAPID NON-REACTIVE (Neg)
[2023-10-17 17:26] LABS: HEMOGLOBIN A1C 5.2 % (4.5-6.2)
[2023-10-19 12:13] LABS: HBSAG SCREEN Negative (Negative); HEPATITIS C VIRUS ANTIBODY Non Reactive (Non Reactive)
== END 2023-10-17 23:59 | disposition home or self-care (01) ==
LOC: LAB 16:05
PROVIDERS: ATTEND Obstetrics & Gynecology
DX: Z34.81 Encounter for supervision of other normal pregnancy, first trimester (principal)
CPT/HCPCS: 83036; 84439; 84443; 85025; 86592; 86703; 86762; 86803; 86885; 86900; 86901; 87088; 87340; 87522

== ENCOUNTER 2024-04-22 20:27 | Emergency (ER) | payer BC ==
[~2024-04-22] VITALS: Ht 149.9 cm; Wt 76.6 kg
[2024-04-22 20:47] VITALS: TEMP 101.6
[2024-04-22 21:17] LABS: BASOPHILS # (AUTO) 0.1 X10'3 (0-0.2); BASOPHILS % (AUTO) 0.4 % (0-1); EOSINOPHILS % (AUTO) 0.1 % (0-6); HEMATOCRIT 36.8 % (35.0-45.0); HEMOGLOBIN 12.1 g/dl (12.0-16.0); LYMPHOCYTES # (AUTO) 1.7 X10'3 (1.1-4.8); LYMPHOCYTES % (AUTO) 10.1 % (21-51); MEAN CORPUSCULAR HEMOGLOBIN 27.9 PG (27.0-31.0); MEAN CORPUSCULAR HGB CONC 32.9 g/dL (33.0-36.5); MEAN CORPUSCULAR VOLUME 84.8 FL (78-98); MEAN PLATELET VOLUME 8.9 FL (7.4-10.4); MONOCYTES # (AUTO) 1.8 X10'3 (0-0.9); MONOCYTES % (AUTO) 10.5 % (2-12); NEUTROPHILS # (AUTO) 13.5 X10'3 (1.8-7.7); NEUTROPHILS % (AUTO) 78.9 % (42-75); PLATELET COUNT 264 X10'3 (140-440); RED BLOOD COUNT 4.34 X10'6 (4.20-5.60); RED CELL DISTRIBUTION WIDTH 14.2 % (11.5-14.5); WHITE BLOOD COUNT 17.1 X10'3 (4.5-11.0)
[2024-04-22 21:18] LABS: BILIRUBIN,URINE SMALL (Neg); CLARITY,URINE SLIGHTLY CLOUDY (Clear); COLOR,URINE YELLOW (Yellow); GLUCOSE, URINE NEGATIVE (Neg); KETONES,URINE >=80 mg/dl (Neg); LEUKOCYTE ESTERASE ,URINE NEGATIVE (Neg); NITRITES, URINE NEGATIVE (Neg); OCCULT BLOOD,URINE NEGATIVE (Neg); PROTEIN,URINE NEGATIVE (Neg)
[2024-04-22 21:27] LABS: UA COLLECTION TYPE CLN CATCH MIDSTREAM
[2024-04-22 21:29] LABS: BACTERIA,URINE FEW /HPF (Neg); RBC,URINE NONE SEEN /HPF (0-2); SQUAMOUS EPITHELIAL CELL,UR MANY /LPF (FEW); WBC,URINE 0-4 /HPF (0-4)
[2024-04-22 21:29] LABS: ALANINE AMINOTRANSFERASE 13 U/L (12-78); ALBUMIN 2.7 G/DL (3.4-5.0); ALBUMIN/GLOBULIN RATIO 0.6 (1.1-1.5); ALKALINE PHOSPHATASE 194 IU/L (46-116); ANION GAP 15 (8-16); ASPARTATE AMINO TRANSFERASE 20 U/L (10-37); BILIRUBIN,TOTAL 0.5 MG/DL (0.1-1.0); BLOOD UREA NITROGEN 6 MG/DL (7-18); BUN/CREATININE RATIO 11.5 (10.0-20.0); CALCIUM 8.4 MG/DL (8.5-10.1); CHLORIDE 100 MMOL/L (99-107); CREATININE 0.52 MG/DL (0.40-0.90); GLUCOSE 89 MG/DL (70-104); POTASSIUM 3.5 MMOL/L (3.5-5.1); SODIUM 133 MMOL/L (135-145); TOTAL PROTEIN 7.2 G/DL (6.4-8.2); eCRCL 107 ML/MIN; eGFR > 90 ML/MIN
[2024-04-22] MEDS ORDERED: sodium chloride inj. 154 MEQ in Dextrose 10%-water IV solution 961.5 ML IV ONE (22:00)
[2024-04-22] MEDS ORDERED: ringers solution, lacted 1,000 ML IV ONE (22:25)
[2024-04-22] MEDS: acetaminophen 325mg tablet PO ONE (22:43)
[2024-04-22 22:55] VITALS: BP 102/58; PULSE 119; RESP 16; O2SAT 95
== END 2024-04-22 23:01 | disposition left against medical advice (07) ==
LOC: ER 20:28
DX: O26.893 Other specified pregnancy related conditions, third trimester (principal); R50.9 Fever, unspecified; Z88.6 Allergy status to analgesic agent; Z90.49 Acquired absence of other specified parts of digestive tract; Z3A.38 38 weeks gestation of pregnancy; G43.909 Migraine, unspecified, not intractable, without status migrainosus; Z87.442 Personal history of urinary calculi; Z20.822 Contact with and (suspected) exposure to COVID-19
CPT/HCPCS: 36415; 80053; 81001; 83605; 84145; 85025; 87502; 87503; 87811; 99283; J7030; J7120